=== PATIENT | male | born 1945 | race Caucasian/White ===

== ENCOUNTER 2018-06-18 11:19 | Inpatient (IN) | payer MEDICARE ==
[~2018-06-18] VITALS: Ht 188 cm; Wt 77.7 kg
--- NOTE | ~2018-06-18 | MORECARE ---
CASE MANAGEMENT DISCHARGE SUMMARY PATIENT: KARISSA CAMPA UNIT: [id number] ADM DATE: 06/18/18 AGE: 72 : 46 SEX: M ROOM/BED: D.2133 AUTHOR: SONAM,DOC PHYSICIAN: REFERRING PHYSICIAN: DEON TODD MD DATE OF SERVICE: 06/29/18 Discharge Plan Patient Name: KARISSA CAMPA Facility: [facility]:[place] : 1945 Planned Disposition: Home with Home Health Anticipated Discharge Date: 06/29/18 Discharge Date: Expected LOS: 11 Initial Reviewer: [email or web address] Initial Review Date: 06/18/2018 Generated: 06/29/18 5:37 pm Comments DCP- Discharge Planning Updated by [id number]: Steve Smallwood on 06/29/18 3:[address] Patient Name: KARISSA CAMPA Encounter No: [id number] : 1945 Primary Insurance: MEDICARE A & B Anticipated DC Date: 06-29-2018 Planned Disposition: Home with Home Health External Planned Provider: [facility] DCP follow-up note: CM RECEIVED ORDERS FOR WALKER, HOME HEALTH AND OXYGEN. PT WAS 91% AT REST ON ROOM AIR, 88% ON EXERTION ON ROOM AIR AND RECOVERED TO 93% ON 2 LITERS NASAL CANNULA. CM MET WITH PT IN ROOM, DISCUSSED ABOVE. PT HAS NO CHOICE FOR HOME HEALTH BUT WILL ACCEPT THE SERVICES. CHOICE LETTER SIGNED. PT HAS NO MEDICAL EQUIPMENT PROVIDER PREFERENCE, REPORTS ABILITY TO AFFORD APPROXIMATELY $22 COPAY FOR HOME / PORTABLE OXYGEN ARRANGEMENT. PT REPORTS HE WILL CALL I TO TAKE HIM HOME TODAY AT DISCHARGE. DENIES FURTHER NEEDS. CM CALLED [facility], , SPOKE TO SAM WHO ACCEPTED PT AND WILL ADMIT FOR HOME HEALTH TOMORROW. CM FAXED REFERRAL TO [facility] AT [phone]. CM CALLED [facility], , SPOKE TO GURVINDER WHO TOOK REFERRAL FOR HOME AND PORTABLE OXYGEN WELL WALKER. CM FAXED REFERRAL TO [facility] AT [phone]. [facility] TO ARRANGE PORTABLE OXYGEN TO HOSPITAL ROOM TODAY FOR DISCHARGE, WILL ARRANGE HOME OXYGEN AND WALKER DELIVERY TO PT'S HOME TODAY AFTER DISCHARGE. CM CALLED AND NOTIFIED HIS SISTER, TARIK BROOKS, , OF DISCHARGE. PT NOTIFIED AND IN AGREEMENT WITH PLAN, DENIES FURTHER NEEDS. Steve Smallwood CASE MANAGEMENT DCP- Discharge Planning Updated by [email or web address]: Steve Smallwood on 06/29/18 8:[address] Patient Name: KARISSA CAMPA Encounter No: [id number] : 1945 Primary Insurance: MEDICARE A & B Anticipated DC Date: 06-29-2018 Planned Disposition: Home DCP follow-up note: CM RECEIVED CALL FROM PT'S DAUGHTER, PIYUSH TOBIAS, ; PIYUSH WILL BE WORKING TO GET POWER OF CARPENTER REFRIGERATOR HER FATHER HAS ASKED HER MAKE MEDICAL DECISIONS FOR HIM IF HE IS UNABLE. PIYUSH LIVES OUT OF STATE AND WOULD LIKE PT TO HAVE HOME HEALTH. SHE REPORTS THAT SHE HAS TALKED TO DR. HAHTAWAY IN THE ICU WHO TOLD HER HE WOULD FOLLOW PT PRIMARY CARE AFTER DISCHARGE FROM HOSPITAL. PT'S FAMILY REQUESTS HOME HEALTH FOR PT, REPORTS DR. HATHAWAY TOLD THEM HE WOULD FOLLOW FOR PRIMARY CARE. CM TO DISCUSS WITH CHETNA CHEEMA AND ASK FOR HOME HEALTH ORDERS. PT WOULD LIKE A WALKER FOR DISCHARGE. CM TO ARRANGE WITH PHYSICIAN AGREEMENT AND SPECIFIC ORDERS. CM TO FOLLOW AND ASSIST NEEDED. Steve Smallwood CASE MANAGEMENT DCP- Discharge Planning Updated by [email or web address]: Steve Smallwood on 06/28/18 3:[address] Patient Name: KARISSA CAMPA Encounter No: [id number] : 1945 Primary Insurance: MEDICARE A & B Anticipated DC Date: 06-29-2018 Planned Disposition: Home DCP follow-up note: CM RECEIVED ORDER FOR INPATIENT REHAB PRESCREENING. CM SPOKE TO IRINA AND TARIK BALLCH AT NURSES STATION AT FAMILY REQUEST. TARIK REPORTS BEING PT'S SISTER, PT LIVES IN [place] WITH NO FAMILY SUPPORT AND HAS A TRANSIET PERSON DRIVING HIS TRUCK AROUND TOWN. THEY ARE CONCERNED ABOUT PT LIVING ALONE AND WOULD LIKE FOR PT TO HAVE AN ELECTRIC WHEELCHAIR AND LIFT CHAIR. CM INFORMED FAMILY THAT CM WILL MEET WITH PT AND DO WHATEVER IS POSSIBLE FOR PT. CM MET WITH PT IN ROOM TO DISCUSS DISCHARGE PLANNING AND NEEDS. PT PROVIDED PERMISSION TO DISCUSS HIS CARE AND TREATMENT WITH SISTER, TARIK BROOKS. PT LIVES ALONE AND HAS A FRIEND, PERI FONTANEZ, THAT ASSISTS WITH CLEANING THE HOME AND RUNNING ERRANDS. CM DISCUSSED AVAILABILITY OF REHAB SERVICES. PT DENIES NEED FOR REHAB, STATES HE IS GOING HOME AT DISCHARGE. PT HAS A CANE WITH NO MEDICAL EQUIPMENT PROVIDER PRERENCE AND THINKS A WALKER MAY HELP AT HOME IF HE DOES FEEL WEAK. PT HAS NO PRIMARY CARE DOCTOR SINCE MOVING HERE. CM PROVIDED [facility] CONNECTIONS INFORMATION, DISCUSSED HOW TO GET APPOINTMENT FOR REVIEW AND POSSIBLE PRIMARY DOCTOR CARE AT THE CLINIC. PT REPORTS UNDERSTANDING, STATES HE WILL BE TAKING A TAXI CAB HOME AT DISCHARGE.IMPORTANT MESSAGE FROM MEDICARE PROVIDED AND EXPLAINED. PT WOULD LIKE A WALKER FOR DISCHARGE. CM TO ARRANGE WITH PHYSICIAN AGREEMENT AND SPECIFIC ORDERS. CM TO FOLLOW AND ASSIST NEEDED. Steve Smallwood, CASE MANAGEMENT DCP- Discharge Planning Updated by [email or web address]: Grace Lau on 06/18/18 4:[address] CM contacted Lana Morelos RN, with [facility] to notify of order. Lana states Rehab will follow the patient's progress with PT/OT for evaluation. Grace Lau RN, CM DCPIA - Discharge Planning Initial Assessment Updated by [email or web address]: Steve Smallwood on 06/28/18 4:49 pm * Is the patient Alert and Oriented? Yes * How many steps to enter\exit or inside your home? NONE * PCP NONE PROVIDED [facility]CTIONS [facility] INFORMATION * Pharmacy [facility]. * Preadmission Environment Home Alone * ADLs Independent * Equipment Cane * Other Equipment NO MEDICAL EQUIPMENT PROVIDER PREFERENCE * List name and contact numbers for known caregivers / representatives who currently or will assist patient after discharge: PERI FREEMAN, FRIEND, TARIK BROOKS, SISTER, NEIL ROSLAES IN LAW, * Verbal permission to speak to the caregivers and representatives has been obtained from the patient. Yes * Community resources currently utilized None * Please name any agencies selected above. NONE * Additional services required to return to the preadmission environment? No * Can the patient safely return to the preadmission environment? Yes * Has this patient been hospitalized within the prior 30 days at any hospital? No Coverage Notice Reviewer: [id number] - Steve Smallwood Notice Issued Date-Time: 06/28/2018 12:00 Notice Type: IM Discharge Notice Notice Delivered To: Patient Relationship to Patient: Nursery Hand Name: Delivery Method: HAND - Hand Delivered Zaria Days: Prior Verbal Notification: Recipient Understood Notice: Yes Recipient Signature: Yes Med Rec Note Co-signed by Attending: Coverage Notice Comment: Last DP export: 06/29/18 2:54 Patient Name: KARISSA CAMPA Page [id number] at 1637 All edits/amendments must be made on the electronic document DICTATION DATE: 06/29/181636 SHANK BREAKER: DEVORAH 06/29/181636 RPT#: [id number] DC DATE: STATUS: ADM IN [facility] [address] [place] [address] END OF REPORT
--- NOTE | ~2018-06-18 | MORECARE ---
CASE MANAGEMENT DISCHARGE SUMMARY PATIENT: KARISSA CAMPA UNIT: [id number] ADM DATE: 06/18/18 AGE: 72 : 47 SEX: M ROOM/BED: D.2133 AUTHOR: SONAM,DOC PHYSICIAN: REFERRING PHYSICIAN: DEON TODD MD DATE OF SERVICE: 06/29/18 Discharge Plan Patient Name: KARISSA CAMPA Facility: [facility]:[place] : 1945 Planned Disposition: Home with Home Health Anticipated Discharge Date: 06/29/18 Discharge Date: Expected LOS: 11 Initial Reviewer: [email or web address] Initial Review Date: 06/18/2018 Generated: 06/29/18 4:46 pm Comments DCP- Discharge Planning Updated by [email or web address]: Steve Smallwood on 06/29/18 8:[address] Patient Name: KARISSA CAMPA Encounter No: [id number] : 1945 Primary Insurance: MEDICARE A & B Anticipated DC Date: 06-29-2018 Planned Disposition: Home DCP follow-up note: CM RECEIVED CALL FROM PT'S DAUGHTER, PIYUSH TOBIAS, ; PIYUSH WILL BE WORKING TO GET POWER OF SUPERINTENDENT OF GENERATION HER FATHER HAS ASKED HER MAKE MEDICAL DECISIONS FOR HIM IF HE IS UNABLE. PIYUSH LIVES OUT OF STATE AND WOULD LIKE PT TO HAVE HOME HEALTH. SHE REPORTS THAT SHE HAS TALKED TO DR. HATHAWAY IN THE ICU WHO TOLD HER HE WOULD FOLLOW PT PRIMARY CARE AFTER DISCHARGE FROM HOSPITAL. PT'S FAMILY REQUESTS HOME HEALTH FOR PT, REPORTS DR. HATHAWAY TOLD THEM HE WOULD FOLLOW FOR PRIMARY CARE. CM TO DISCUSS WITH CHETNA CHEEMA AND ASK FOR HOME HEALTH ORDERS. PT WOULD LIKE A WALKER FOR DISCHARGE. CM TO ARRANGE WITH PHYSICIAN AGREEMENT AND SPECIFIC ORDERS. CM TO FOLLOW AND ASSIST NEEDED. JASMEET Roberson DCP- Discharge Planning Updated by [email or web address]: Steve Smallwood on 06/28/18 3:[address] Patient Name: KARISSA CAMPA Encounter No: [id number] : 1945 Primary Insurance: MEDICARE A & B Anticipated DC Date: 06-29-2018 Planned Disposition: Home DCP follow-up note: CM RECEIVED ORDER FOR INPATIENT REHAB PRESCREENING. CM SPOKE TO IRINA AND TARIK BROOKS AT NURSES STATION AT FAMILY REQUEST. TARIK REPORTS BEING PT'S SISTER, PT LIVES IN [place] WITH NO FAMILY SUPPORT AND HAS A TRANSIET PERSON DRIVING HIS TRUCK AROUND [facility]. THEY ARE CONCERNED ABOUT PT LIVING ALONE AND WOULD LIKE FOR PT TO HAVE AN ELECTRIC WHEELCHAIR AND LIFT CHAIR. CM INFORMED FAMILY THAT CM WILL MEET WITH PT AND DO WHATEVER IS POSSIBLE FOR PT. CM MET WITH PT IN ROOM TO DISCUSS DISCHARGE PLANNING AND NEEDS. PT PROVIDED PERMISSION TO DISCUSS HIS CARE AND TREATMENT WITH SISTER, TARIK BROOKS. PT LIVES ALONE AND HAS A FRIEND, PERI FONTANEZ, THAT ASSISTS WITH CLEANING THE HOME AND RUNNING ERRANDS. CM DISCUSSED AVAILABILITY OF REHAB SERVICES. PT DENIES NEED FOR REHAB, STATES HE IS GOING HOME AT DISCHARGE. PT HAS A CANE WITH NO MEDICAL EQUIPMENT PROVIDER PRERENCE AND THINKS A WALKER MAY HELP AT HOME IF HE DOES FEEL WEAK. PT HAS NO PRIMARY CARE DOCTOR SINCE MOVING HERE. CM [facility]FORMATION, DISCUSSED HOW TO GET APPOINTMENT FOR REVIEW AND POSSIBLE PRIMARY DOCTOR CARE AT THE CLINIC. PT REPORTS UNDERSTANDING, STATES HE WILL BE TAKING A TAXI CAB HOME AT DISCHARGE.IMPORTANT MESSAGE FROM MEDICARE PROVIDED AND EXPLAINED. PT WOULD LIKE A WALKER FOR DISCHARGE. CM TO ARRANGE WITH PHYSICIAN AGREEMENT AND SPECIFIC ORDERS. CM TO FOLLOW AND ASSIST NEEDED. Steve Smallwood, CASE MANAGEMENT DCP- Discharge Planning Updated by [id number]: Grace Lau on 06/18/18 4:[address] CM contacted Lana Morelos RN, with [facility] to notify of order. Lana states Rehab will follow the patient's progress with PT/OT for evaluation. Grace Lau RN, CM DCPIA - Discharge Planning Initial Assessment Updated by [email or web address]: Steve Smallwood on 06/28/18 4:49 pm * Is the patient Alert and Oriented? Yes * How many steps to enter\exit or inside your home? NONE * PCP NONE PROVIDED [facility] CONNECTIONS [facility]IN[facility] INFORMATION * Pharmacy [facility]. * Preadmission Environment Home Alone * ADLs Independent * Equipment Cane * Other Equipment NO MEDICAL EQUIPMENT PROVIDER PREFERENCE * List name and contact numbers for known caregivers / representatives who currently or will assist patient after discharge: PERI FREEMAN, FRIEND, TARIK BROOKS, SISTER, NEIL ROSALES IN LAW, * Verbal permission to speak to the caregivers and representatives has been obtained from the patient. Yes * Community resources currently utilized None * Please name any agencies selected above. NONE * Additional services required to return to the preadmission environment? No * Can the patient safely return to the preadmission environment? Yes * Has this patient been hospitalized within the prior 30 days at any hospital? No External Providers [facility] Next Contact Date: 06/29/2018 Service Request Date: Service Type: Resolution: Reviewer: Comments: Coverage Notice Reviewer: [id number] - Steve Smallwood Notice Issued Date-Time: 06/28/2018 12:00 Notice Type: IM Discharge Notice Notice Delivered To: Patient Relationship to Patient: Registered Occupational Therapist Name: Delivery Method: HAND - Hand Delivered Zaria Days: Prior Verbal Notification: Recipient Understood Notice: Yes Recipient Signature: Yes Med Rec Note Co-signed by Attending: Coverage Notice Comment: Last DP export: 06/29/18 8:05 Patient Name: KARISSA CAMPA Page [id number] at 1546 All edits/amendments must be made on the electronic document DICTATION DATE: 06/29/181545 SURGERY SCHEDULING COORDINATOR: DEVORAH 06/29/181545 RPT#: [id number] DC DATE: STATUS: ADM IN [facility] [address] [place] [address] END OF REPORT
--- NOTE | ~2018-06-18 | CN ---
PATIENT NAME:KARISSA RODRÍGUEZ MEDICAL RECORD: [id number] : 47 LOCATION:. D.2133 ADMIT DATE: 06/18/18 ACCOUNT: [id number] CONSULTING PHYSICIAN: RONALD CORREA MD REFERRING PHYSICIAN: RODERICK YA MD DATE OF CONSULTATION: 06/18/2018 CONSULT REQUESTING PHYSICIAN: Roderick Ya MD REASON FOR CONSULTATION: Pulmonary edema, acute shortness of breath. HISTORY OF PRESENT ILLNESS: Mr. Rodríguez is a 72-year-old gentleman who was brought into the ER with worsening shortness of breath, swelling of the lower extremities. There is no chest pain. He has orthopnea and PND. Denies any fever and chills. Denies any recent upper respiratory tract infection. REVIEW OF SYSTEMS: As in history of present illness. PAST MEDICAL HISTORY: 1. COPD. 2. Congestive heart failure. 3. Tobacco dependence syndrome. ALLERGIES: No known drug allergy. MEDICATIONS: Arjuna Solutionstech is reviewed. PERSONAL AND SOCIAL HISTORY: The patient is still smoking a pack to 1-1/2 pack per day. He is a nondrinker. FAMILY HISTORY: Noncontributory. PHYSICAL EXAMINATION: GENERAL: Now, the patient is lying comfortably, but he is a severe dyspneic. VITAL SIGNS: The blood pressure 122/82, pulse is 119, respiration is 20, temperature is 98.1, and SPO2 is 92% on 2 liters nasal cannula. HEENT: Conjunctivae are pink. Sclerae are not icteric. NECK: Supple, no JVD. CHEST: There are bilateral crackles, wheeze on forceful expiration. HEART: Rhythm regular, normal sound, no murmur. ABDOMEN: Soft, bowel sounds present. No hepatosplenomegaly. RECTAL: Deferred. EXTREMITIES: No cyanosis, no clubbing. There are 2+ pedal edema. SKIN: Warm, normal turgor. CENTRAL NERVOUS SYSTEM: The patient is awake and alert. There are no obvious cranial nerve abnormality. The gait was not tested. IMAGING: Chest radiograph, there is increased interstitial marking bilaterally, the right more than the left. LABORATORY DATA: CBC: WBC is 7.7, hemoglobin 15, hematocrit 44, and the platelet count is 156. Chemistry: Sodium is 130, potassium is 4.9. ABG: The pH is 7.30, pCO2 is 58.7, the pO2 is 80, bicarbonate is 29.1. IMPRESSION: CONSULT REPORT [id number] KARISSA RODRÍGUEZ 1. Gpjjj-ud-nqafdrr hypoxic hypercapnic respiratory failure. 2. Respiratory acidosis. 3. Acute exacerbation of COPD. 4. Pulmonary edema. 5. CHF with chronic systolic dysfunction. 6. Tobacco dependence syndrome. 7. Dyspnea. RECOMMENDATION: 1. We will continue supplemental oxygen. 2. Start on albuterol/ipratropium nebulizer. 3. Brovana, budesonide nebulizer. 4. Continue IV Lasix. 5. Follow up on the cardiac echo report. 6. The patient was counseled regarding smoking cessation. 7. Followup labs and chest radiograph. Dr. Ya, thank you for involving me in the care of Mr. Rodríguez. TRANSINT:[id number] Voice Confirmation ID: [id number] DOCUMENT ID: [id number] RONALD CORREA MD at 1234 CC: [id number] DICTATION DATE: 06/18/18 1507 PHYSICIANS ASSISTANT: 06/18/18 1522 ADM IN [facility] [address] [place] [address]
--- NOTE | ~2018-06-18 | CN ---
PATIENT NAME:KARISSA CAMPA MEDICAL RECORD: [id number] : [birth year] LOCATION:YANIRAD.2308 ADMIT DATE: 06/18/18 ACCOUNT: [id number] CONSULTING PHYSICIAN: EBONI JOHN MD REFERRING PHYSICIAN: DEON TODD MD DATE OF CONSULTATION: 06/18/2018 DIAGNOSES: 1. Shortness of breath, dyspnea on exertion. 2. Smoking. 3. Chronic obstructive pulmonary disease. 4. Hypertension. 5. Aortic stenosis. 6. Cardiomyopathy. 7. Congestive heart failure, chronic systolic dysfunction. HISTORY OF PRESENT ILLNESS: Mr. Campa has no real medical problems in the past. No real medical history and no cardiac history, presents with shortness of breath and dyspnea on exertion. He is a long-term smoker and does have COPD and is now being treated for that. He had an echocardiogram, reveals an ejection fraction in the 20% range with severe aortic stenosis. His chest x-ray is compatible with pulmonary edema. PHYSICAL EXAMINATION: GENERAL APPEARANCE: Well-nourished, well-developed, appears stated age. Level of distress, comfortable. PSYCHIATRIC: Mental status, alert, normal affect. Orientation, oriented to time, place and person. EYES: Lids and conjunctiva, noninjected. No discharge, no pallor. ENT: Lips, teeth, gums, normal dentition. Oropharynx, no cyanosis, no pallor. NECK: Carotid arteries, bilateral normal upstroke, no bruits, no thrills. JUGULAR VEINS: No jugular venous pressure or distention. CERVICAL LYMPH NODES: Nontender, nonenlarged. THYROID: Not enlarged. Nontender. No nodules. LUNGS: Respiratory effort, unlabored. CHEST: Normal curvature. No thoracic deformity. No chest wall tenderness. Percussion, resonant. Auscultation, clear. No wheezes, no rales, no rhonchi. CARDIOVASCULAR: Precordial exam, nondisplaced. No heaves or pericardial thrills. Rate and rhythm, regular. Heart sounds, normal S1, normal S2. No S3, no gallop, no rub. Systolic murmur, not heard. Diastolic murmur, not heard. EXTREMITIES: No cyanosis, no edema. Peripheral pulses, full and equal in all extremities, except as noted. No bruits appreciated. ABDOMEN: Soft, nondistended. Normal aorta. No bruit. Nontender. No masses. Liver, nontender, no hepatomegaly. Spleen, nontender, no splenomegaly. MUSCULOSKELETAL: No joint tenderness. No joint swelling. No erythema. NEUROLOGICAL: Normal gait, normal strength, normal tone. SKIN: Warm and dry. OVERALL IMPRESSION: Shortness of breath, dyspnea on exertion. This is a combination of chronic obstructive pulmonary disease and congestive heart failure as well as the aortic stenosis. I have talked with him at length about how to approach this. He wanted to take a conservative nonsurgical approach to this. I agree with him with this ejection fraction in his lungs. Operative mortality would be huge. He could possibly go to somewhere for a transcatheter aortic valve replacement procedure in the future. At this time, though, will CONSULT REPORT [id number] KARISSA CAMPA treat medically. We will treat with Coreg and lisinopril as his blood pressure tolerates it, and IV diuresis as well as pulmonary directed therapy for the chronic obstructive pulmonary disease. TRANSINT:[id number] Voice Confirmation ID: [id number] DOCUMENT ID: [id number] EBONI JOHN MD at 1059 CC: [id number] DICTATION DATE: 06/18/18 1651 TILE CLASSIFIER: 06/18/18 1706 ADM IN [facility] [address] [place] [id number]
--- NOTE | ~2018-06-18 | MORECARE ---
CASE MANAGEMENT DISCHARGE SUMMARY PATIENT: KARISSA CAMPA UNIT: [id number] ADM DATE: 06/18/18 AGE: 72 : 47 SEX: M ROOM/BED: D.2133 AUTHOR: SONAM,DOC PHYSICIAN: REFERRING PHYSICIAN: DEON TODD MD DATE OF SERVICE: 06/28/18 Discharge Plan Patient Name: KARISSA CAMPA Facility: [facility]:[place] : 1945 Planned Disposition: Home Anticipated Discharge Date: 06/29/18 Discharge Date: Expected LOS: 11 Initial Reviewer: [id number] Initial Review Date: 06/18/2018 Generated: 06/28/18 5:54 pm Comments DCP- Discharge Planning Updated by [email or web address]: Grace Lua on 06/18/18 4:[address] CM contacted Lana Morelos RN, with [facility] to notify of order. Lana states Rehab will follow the patient's progress with PT/OT for evaluation. Grace Lau RN CM DCPIA - Discharge Planning Initial Assessment Updated by [email or web address]: Steve Smallwood on 06/28/18 4:49 pm * Is the patient Alert and Oriented? Yes * How many steps to enter\exit or inside your home? NONE * PCP NONE PROVIDED [facility]IN[facility] INFORMATION * Pharmacy [facility]. * Preadmission Environment Home Alone * ADLs Independent * Equipment Cane * Other Equipment NO MEDICAL EQUIPMENT PROVIDER PREFERENCE * List name and contact numbers for known caregivers / representatives who currently or will assist patient after discharge: PERI PETE, FRIEND, TARIK BROOKS, SISTER, IRINA BROOKS, BRO IN LAW, * Verbal permission to speak to the caregivers and representatives has been obtained from the patient. Yes * Community resources currently utilized None * Please name any agencies selected above. NONE * Additional services required to return to the preadmission environment? No * Can the patient safely return to the preadmission environment? Yes * Has this patient been hospitalized within the prior 30 days at any hospital? No Coverage Notice Reviewer: [email or web address] Eyal Smallwood Notice Issued Date-Time: 06/28/2018 12:00 Notice Type: IM Discharge Notice Notice Delivered To: Patient Relationship to Patient: Precision Machinist Name: Delivery Method: HAND - Hand Delivered Zaria Days: Prior Verbal Notification: Recipient Understood Notice: Yes Recipient Signature: Yes Med Rec Note Co-signed by Attending: Coverage Notice Comment: Last DP export: 06/28/18 3:47 Patient Name: KARISSA CAMPA Page 65453 at 1654 All edits/amendments must be made on the electronic document DICTATION DATE: 06/28/181652 BELT AND LINK SHOP SUPERVISOR: DEVORAH 06/28/181652 RPT#: [id number] DC DATE: STATUS: ADM IN [facility] [address] [place] [address] END OF REPORT
--- NOTE | ~2018-06-18 | MORECARE ---
CASE MANAGEMENT DISCHARGE SUMMARY PATIENT: KARISSA CAMPA UNIT: [id number] ADM DATE: 06/18/18 AGE: 72 : [birth year] SEX: M ROOM/BED: D.2104 AUTHOR: SAMSON MASTERS PHYSICIAN: REFERRING PHYSICIAN: DEON TDOD MD DATE OF SERVICE: 06/18/18 Discharge Plan Patient Name: KARISSA CAMPA [facility] : 1945 Planned Disposition: Anticipated Discharge Date: Discharge Date: Expected LOS: Initial Reviewer: [email or web address] Initial Review Date: 06/18/2018 Generated: 06/18/18 5:32 pm Comments DCP- Discharge Planning Updated by [email or web address]: Grace Lau on 06/18/18 3:[address] CM contacted Lana Morelos RN, with [facility] to notify of order. Lana states Rehab will follow the patient's progress with PT/OT for evaluation. Grace Lau RN CM Last DP export: 06/18/18 3:24 p Patient Name: KARISSA CAMPA Page 00152 at 1632 All edits/amendments must be made on the electronic document DICTATION DATE: 06/18/18 163 MANAGER DEVELOPMENT: DEVORAH 06/18/18 163 RPT#: [id number] DC DATE: STATUS: ADM IN [facility] [address] [place] [address] END OF REPORT
--- NOTE | ~2018-06-18 | MORECARE ---
CASE MANAGEMENT DISCHARGE SUMMARY PATIENT: KARISSA CAMPA UNIT: [id number] ADM DATE: 06/18/18 AGE: 72 : 47 SEX: M ROOM/BED: D.2104 AUTHOR: SAMSON MASTERS PHYSICIAN: REFERRING PHYSICIAN: DEON TODD MD DATE OF SERVICE: 06/18/18 Discharge Plan Patient Name: KARISSA CAMPA [facility] [facility] 1945 Planned Disposition: Anticipated Discharge Date: Discharge Date: Expected LOS: Initial Reviewer: [email or web address] Initial Review Date: 06/18/2018 Generated: 06/18/18 5:24 pm Patient Name: KARISSA CAMPA Page 41819 at 1624 All edits/amendments must be made on the electronic document DICTATION DATE: 06/18/181623 TELEGRAPH OFFICE TELEPHONE CLERK: DEVORAH 06/18/18 1624 RPT#: [id number] [place] DATE: STATUS: ADM IN [facility] [address] [place] [address] END OF REPORT
--- NOTE | ~2018-06-18 | MORECARE ---
CASE MANAGEMENT DISCHARGE SUMMARY PATIENT: KARISSA CAMPA UNIT: [id number] ADM DATE: 06/18/18 AGE: 72 : [birth year] SEX: M ROOM/BED: D.2133 AUTHOR: SONAM,DOC PHYSICIAN: REFERRING PHYSICIAN: DEON TODD MD DATE OF SERVICE: 06/29/18 Discharge Plan Patient Name: KARISSA CAMPA Facility: [facility]:[place] : 1945 Planned Disposition: Home Anticipated Discharge Date: 06/29/18 Discharge Date: Expected LOS: 11 Initial Reviewer: [id number] Initial Review Date: 06/18/2018 Generated: 06/29/18 10:05 am Comments DCP- Discharge Planning Updated by [email or web address]: Steve Smallwood on 06/29/18 8:[address] Patient Name: KARISSA CAMPA Encounter No: [id number] : 1945 Primary Insurance: MEDICARE A & B Anticipated DC Date: 06-29-2018 Planned Disposition: Home DCP follow-up note: CM RECEIVED CALL FROM PT'S DAUGHTER, PIYUSH TOBIAS, ; PYIUSH WILL BE WORKING TO GET POWER OF CORPORATE SALES TRAINER HER FATHER HAS ASKED HER MAKE MEDICAL DECISIONS FOR HIM IF HE IS UNABLE. PIYUSH LIVES OUT OF STATE AND WOULD LIKE PT TO HAVE HOME HEALTH. SHE REPORTS THAT SHE HAS TALKED TO DR. HATHAWAY IN THE ICU WHO TOLD HER HE WOULD FOLLOW PT PRIMARY CARE AFTER DISCHARGE FROM HOSPITAL. PT'S FAMILY REQUESTS HOME HEALTH FOR PT, REPORTS DR. HATHAWAY TOLD THEM HE WOULD FOLLOW FOR PRIMARY CARE. CM TO DISCUSS WITH CHETNA CHEEMA AND ASK FOR HOME HEALTH ORDERS. PT WOULD LIKE A WALKER FOR DISCHARGE. CM TO ARRANGE WITH PHYSICIAN AGREEMENT AND SPECIFIC ORDERS. CM TO FOLLOW AND ASSIST NEEDED. Steve Smallwood, CASE HECTOR DCP- Discharge Planning Updated by [id number]: Steve Smallwood on 06/28/18 3:[address] Patient Name: KARISSA CAMPA Encounter No: [id number] : 1945 Primary Insurance: MEDICARE A & B Anticipated DC Date: 06-29-2018 Planned Disposition: Home DCP follow-up note: CM RECEIVED ORDER FOR INPATIENT REHAB PRESCREENING. CM SPOKE TO IRINA AND TARIK BROOKS AT NURSES STATION AT FAMILY REQUEST. TARIK REPORTS BEING PT'S SISTER, PT LIVES IN [place] WITH NO FAMILY SUPPORT AND HAS A TRANSIET PERSON DRIVING HIS TRUCK AROUND [facility]. THEY ARE CONCERNED ABOUT PT LIVING ALONE AND WOULD LIKE FOR PT TO HAVE AN ELECTRIC WHEELCHAIR AND LIFT CHAIR. CM INFORMED FAMILY THAT CM WILL MEET WITH PT AND DO WHATEVER IS POSSIBLE FOR PT. CM MET WITH PT IN ROOM TO DISCUSS DISCHARGE PLANNING AND NEEDS. PT PROVIDED PERMISSION TO DISCUSS HIS CARE AND TREATMENT WITH SISTER, TARIK BROOKS. PT LIVES ALONE AND HAS A FRIEND, PERI FONTANEZ, THAT ASSISTS WITH CLEANING THE HOME AND RUNNING ERRANDS. CM DISCUSSED AVAILABILITY OF REHAB SERVICES. PT DENIES NEED FOR REHAB, STATES HE IS GOING HOME AT DISCHARGE. PT HAS A CANE WITH NO MEDICAL EQUIPMENT PROVIDER PRERENCE AND THINKS A WALKER MAY HELP AT HOME IF HE DOES FEEL WEAK. PT HAS NO PRIMARY CARE DOCTOR SINCE MOVING HERE. CM [facility], DISCUSSED HOW TO GET APPOINTMENT FOR REVIEW AND POSSIBLE PRIMARY DOCTOR CARE AT THE CLINIC. PT REPORTS UNDERSTANDING, STATES HE WILL BE TAKING A TAXI CAB HOME AT DISCHARGE.IMPORTANT MESSAGE FROM MEDICARE PROVIDED AND EXPLAINED. PT WOULD LIKE A WALKER FOR DISCHARGE. CM TO ARRANGE WITH PHYSICIAN AGREEMENT AND SPECIFIC ORDERS. CM TO FOLLOW AND ASSIST NEEDED. Steve Smallwood, CASE MANAGEMENT DCP- Discharge Planning Updated by [email or web address]: Grace Lau on 06/18/18 4:[address] CM contacted Lana Morelos RN, with [facility] to notify of order. Lana states Rehab will follow the patient's progress with PT/OT for evaluation. Grace Lau RN, CM DCPIA - Discharge Planning Initial Assessment Updated by [id number]: Steve Smallwood on 06/28/18 4:49 pm * Is the patient Alert and Oriented? Yes * How many steps to enter\exit or inside your home? NONE * PCP NONE PROVIDED [facility] INFORMATION * Pharmacy [facility]. * Preadmission Environment Home Alone * ADLs Independent * Equipment Cane * Other Equipment NO MEDICAL EQUIPMENT PROVIDER PREFERENCE * List name and contact numbers for known caregivers / representatives who currently or will assist patient after discharge: PERI FREEMAN, FRIEND, TARIK BROOKS, SISTER, NEIL ROSALES IN LAW, * Verbal permission to speak to the caregivers and representatives has been obtained from the patient. Yes * Community resources currently utilized None * Please name any agencies selected above. NONE * Additional services required to return to the preadmission environment? No * Can the patient safely return to the preadmission environment? Yes * Has this patient been hospitalized within the prior 30 days at any hospital? No Coverage Notice Reviewer: [id number] Eyal Smallwood Notice Issued Date-Time: 06/28/2018 12:00 Notice Type: IM Discharge Notice Notice Delivered To: Patient Relationship to Patient: Stave Inspector Name: Delivery Method: HAND - Hand Delivered Zaria Days: Prior Verbal Notification: Recipient Understood Notice: Yes Recipient Signature: Yes Med Rec Note Co-signed by Attending: Coverage Notice Comment: Last DP export: 06/28/18 4:02 Patient Name: KARISSA CAMPA Page 53818 at 0905 All edits/amendments must be made on the electronic document DICTATION DATE: 06/29/18904 DOPE WORKER: DEVORAH 06/29/18904 RPT#: [id number] DC DATE: STATUS: ADM IN [facility] [address] [place] [address] END OF REPORT
--- NOTE | ~2018-06-18 | EC ---
PATIENT:KARISSA CAMPA DATE OF SERVICE: 06/18/18 SEX: M MEDICAL RECORD: [id number] DATE OF : [birth year] LOCATION:[facility] AGE OF PATIENT: 72 ADMISSION DATE: 06/18/18 REFERRING PHYSICIAN: INTERPRETING PHYSICIAN: EBONI CROW MD ECHOCARDIOGRAM REPORT ECHO CHARGES 4 ECHO COMPLETE Date: 06/18/18 CLINICAL DIAGNOSIS: ECHOCARDIOGRAPHIC MEASUREMENTS (adult normal given) AC root (d.<3.7cm) 3.9 cm LV Septum d (<1.2 cm> 1.4 cm Valve Excursion 0.7 cm LV Septum (systole) 1.6 cm Left Atria (s.<4.0cm> 3.9 cm LVPW d(<1.2cm) 1.2 cm RV (d.<2.3cm) 2.4 cm LVPW (sytole) 1.6 cm LV diastole(<5.6CM) 6.7 cm MV E-F(>70mm/sec) cm LV systole 6.0 cm LVOT Diameter 1.9 cm MV exc.(>10mm) cm Est.ejection fraction (50-75%) % DOPPLER: LVIT cm/sec A cm/sec E 193 cm/sec LA cm/sec RVSP 44.0 mmHg LVOT 97.0 cm/sec AOP1/2T m/s Asc. Ao 464 cm/sec RVOT 68.0 cm/sec RA cm/sec PA 106 cm/sec AV Gradient Peak 86.1 mmHg AV Mean 54.0 mmHg AV Area 0.6 cm MV Gradient Peak 19.1 mmHg MV Mean 6.0 mmHg MV Area cm COMMENTS: Leaf Conditioner Helper: 1 DOMINGA ORDOÑEZDSOE Cath Lab Manager: 1 Dr. Crow TAPE# PACS Pericardial Effusion N DATE OF SERVICE: 06/18/2018 FINDINGS: 1. Left ventricular chamber size is mildly dilated. Left ventricular systolic function is markedly reduced. Overall ejection fraction is 15% to 20%. 2. Left atrium is within normal limits at 3.9 cm. Right atrium and right ventricle chamber sizes are mildly dilated. 3. Valvular structures: Aortic valve demonstrates severe calcific aortic stenosis. Valve area calculates at 0.6 cm-squared. There is a gradient of 86 mm across the valve. The remaining valvular structures have normal structure ECHOCARDIOGRAM REPORT [id number] GRAVES,KARISSA WEN and motion. 4. Doppler interrogation else garcia reveals moderate mitral regurgitation and mild tricuspid regurgitation. No other valvular insufficiency or stenosis. Pulmonary systolic pressure is estimated at 44 mmHg. 5. No evidence of pericardial effusion or left ventricular thrombus. TRANSINT:[id number] Voice Confirmation ID: [id number] DOCUMENT ID: [id number] EBONI CROW MD at 1059 CC: [id number] DICTATION DATE: 06/18/181640 POULTRY KILLER: 06/18/18 1655 ADM IN [facility] [address] [place] [id number]
--- NOTE | ~2018-06-18 | MORECARE ---
CASE MANAGEMENT DISCHARGE SUMMARY PATIENT: KARISSA CAMPA UNIT: [id number] ADM DATE: 06/18/18 AGE: 72 : 47 SEX: M ROOM/BED: D.2133 AUTHOR: SAMSON MASTERS PHYSICIAN: REFERRING PHYSICIAN: DEON TODD MD DATE OF SERVICE: 06/28/18 Discharge Plan Patient Name: KARISSA CAMPA [facility] [facility] 1945 Planned Disposition: Home Anticipated Discharge Date: 06/29/18 Discharge Date: Expected LOS: 11 Initial Reviewer: [email or web address] Initial Review Date: 06/18/2018 Generated: 06/28/18 5:46 pm Comments DCP- Discharge Planning Updated by [id number]: Grace Lau on 06/18/18 4:[address] CM contacted Lana Morelos RN, with [facility] to notify of order. Lana states Rehab will follow the patient's progress with PT/OT for evaluation. Grace Lau RN CM Coverage Notice Reviewer: [id number] Eyal Smallwood Notice Issued Date-Time: 06/28/2018 12:00 Notice Type: IM Discharge Notice Notice Delivered To: Patient Relationship to Patient: Software Licensing Specialist Name: Delivery Method: HAND - Hand Delivered Zaria Days: Prior Verbal Notification: Recipient Understood Notice: Yes Recipient Signature: Yes Med Rec Note Co-signed by Attending: Coverage Notice Comment: Last DP export: 06/18/18 4:32 p Patient Name: KARISSA CAMPA Page [id number] at 1647 All edits/amendments must be made on the electronic document DICTATION DATE: 06/28/181645 ASIC DESIGN ENGINEER: DEVORAH 06/28/181645 RPT#: [id number] DC DATE: STATUS: ADM IN [facility] [address] [place] [address] END OF REPORT
--- NOTE | ~2018-06-18 | MORECARE ---
CASE MANAGEMENT DISCHARGE SUMMARY PATIENT: KARISSA CAMPA UNIT: [id number] ADM DATE: 06/18/18 AGE: 72 : 47 SEX: M ROOM/BED: D.2133 AUTHOR: SONAM,DOC PHYSICIAN: REFERRING PHYSICIAN: DEON TODD MD DATE OF SERVICE: 06/29/18 Discharge Plan Patient Name: KARISSA CAMPA Facility: [facility]:[place] : 1945 Planned Disposition: Home with Home Health Anticipated Discharge Date: 06/29/18 Discharge Date: Expected LOS: 11 Initial Reviewer: [id number] Initial Review Date: 06/18/2018 Generated: 06/29/18 4:54 pm Comments DCP- Discharge Planning Updated by [id number]: Steve Smallwood on 06/29/18 8:[address] Patient Name: KARISSA CAMPA Encounter No: [id number] : 1945 Primary Insurance: MEDICARE A & B Anticipated DC Date: 06-29-2018 Planned Disposition: Home DCP follow-up note: CM RECEIVED CALL FROM PT'S DAUGHTER, PIYUSH TOBIAS, ; PIYUSH WILL BE WORKING TO GET POWER OF PLUG MAKING OPERATOR HER FATHER HAS ASKED HER MAKE MEDICAL DECISIONS FOR HIM IF HE IS UNABLE. PIYUSH LIVES OUT OF STATE AND WOULD LIKE PT TO HAVE HOME HEALTH. SHE REPORTS THAT SHE HAS TALKED TO DR. HATHAWAY IN THE ICU WHO TOLD HER HE WOULD FOLLOW PT PRIMARY CARE AFTER DISCHARGE FROM HOSPITAL. PT'S FAMILY REQUESTS HOME HEALTH FOR PT, REPORTS DR. HATHAWAY TOLD THEM HE WOULD FOLLOW FOR PRIMARY CARE. CM TO DISCUSS WITH CHETNA CHEEMA AND ASK FOR HOME HEALTH ORDERS. PT WOULD LIKE A WALKER FOR DISCHARGE. CM TO ARRANGE WITH PHYSICIAN AGREEMENT AND SPECIFIC ORDERS. CM TO FOLLOW AND ASSIST NEEDED. JASMEET Roberson DCP- Discharge Planning Updated by [id number]: Steve Smallwood on 06/28/18 3:[address] Patient Name: KARISSA CAMPA Encounter No: [id number] : 1945 Primary Insurance: MEDICARE A & B Anticipated DC Date: 06-29-2018 Planned Disposition: Home DCP follow-up note: CM RECEIVED ORDER FOR INPATIENT REHAB PRESCREENING. CM SPOKE TO IRINA AND TARIK BROOKS AT NURSES STATION AT FAMILY REQUEST. TARIK REPORTS BEING PT'S SISTER, PT LIVES IN [place] WITH NO FAMILY SUPPORT AND HAS A TRANSIET PERSON DRIVING HIS TRUCK AROUND [facility]. THEY ARE CONCERNED ABOUT PT LIVING ALONE AND WOULD LIKE FOR PT TO HAVE AN ELECTRIC WHEELCHAIR AND LIFT CHAIR. CM INFORMED FAMILY THAT CM WILL MEET WITH PT AND DO WHATEVER IS POSSIBLE FOR PT. CM MET WITH PT IN ROOM TO DISCUSS DISCHARGE PLANNING AND NEEDS. PT PROVIDED PERMISSION TO DISCUSS HIS CARE AND TREATMENT WITH SISTER, TARIK BROOKS. PT LIVES ALONE AND HAS A FRIEND, PERI FONTANEZ, THAT ASSISTS WITH CLEANING THE HOME AND RUNNING ERRANDS. CM DISCUSSED AVAILABILITY OF REHAB SERVICES. PT DENIES NEED FOR REHAB, STATES HE IS GOING HOME AT DISCHARGE. PT HAS A CANE WITH NO MEDICAL EQUIPMENT PROVIDER PRERENCE AND THINKS A WALKER MAY HELP AT HOME IF HE DOES FEEL WEAK. PT HAS NO PRIMARY CARE DOCTOR SINCE MOVING HERE. CM PROVIDED [facility] INFORMATION, DISCUSSED HOW TO GET APPOINTMENT FOR REVIEW AND POSSIBLE PRIMARY DOCTOR CARE AT THE CLINIC. PT REPORTS UNDERSTANDING, STATES HE WILL BE TAKING A TAXI CAB HOME AT DISCHARGE.IMPORTANT MESSAGE FROM MEDICARE PROVIDED AND EXPLAINED. PT WOULD LIKE A WALKER FOR DISCHARGE. CM TO ARRANGE WITH PHYSICIAN AGREEMENT AND SPECIFIC ORDERS. CM TO FOLLOW AND ASSIST NEEDED. Steve Smallwood, CASE MANAGEMENT DCP- Discharge Planning Updated by [id number]: Grace Lau on 06/18/18 4:[address] CM contacted Lana Morelos RN, with [facility] to notify of order. Lana states Rehab will follow the patient's progress with PT/OT for evaluation. Grace Lau RN, CM DCPIA - Discharge Planning Initial Assessment Updated by [id number]: Steve Smallwood on 06/28/18 4:49 pm * Is the patient Alert and Oriented? Yes * How many steps to enter\exit or inside your home? NONE * PCP NONE PROVIDED to[facility] INFORMATION * Pharmacy [facility]. * Preadmission Environment Home Alone * ADLs Independent * Equipment Cane * Other Equipment NO MEDICAL EQUIPMENT PROVIDER PREFERENCE * List name and contact numbers for known caregivers / representatives who currently or will assist patient after discharge: PERI FREEMAN, FRIEND, TARIK BROOKS, SISTER, NEIL ROSALES IN LAW, * Verbal permission to speak to the caregivers and representatives has been obtained from the patient. Yes * Community resources currently utilized None * Please name any agencies selected above. NONE * Additional services required to return to the preadmission environment? No * Can the patient safely return to the preadmission environment? Yes * Has this patient been hospitalized within the prior 30 days at any hospital? No External Providers External Provider: [facility] Next Contact Date: 06/29/2018 Service Request Date: Service Type: Resolution: Reviewer: Comments: Coverage Notice Reviewer: [id number] - Steve Smallwood Notice Issued Date-Time: 06/28/2018 12:00 Notice Type: IM Discharge Notice Notice Delivered To: Patient Relationship to Patient: Manager Entry Name: Delivery Method: HAND - Hand Delivered Zaria Days: Prior Verbal Notification: Recipient Understood Notice: Yes Recipient Signature: Yes Med Rec Note Co-signed by Attending: Coverage Notice Comment: Last DP export: 06/29/18 2:46 Patient Name: KARISSA CAMPA Page 62255 at 1554 All edits/amendments must be made on the electronic document DICTATION DATE: 06/29/181553 CITRIX SYSTEMS ADMINISTRATOR: DEVORAH 06/29/181553 RPT#: [id number] DC DATE: STATUS: ADM IN [facility] [address] [place] [address] END OF REPORT
--- NOTE | ~2018-06-18 | MORECARE ---
CASE MANAGEMENT DISCHARGE SUMMARY PATIENT: KARISSA CAMPA UNIT: [id number] ADM DATE: 06/18/18 AGE: 72 : 46 SEX: M ROOM/BED: D.2133 AUTHOR: SONAM,DOC PHYSICIAN: REFERRING PHYSICIAN: DEON TODD MD DATE OF SERVICE: 06/28/18 Discharge Plan Patient Name: KARISSA CAMPA Facility: [facility]:[place] : 1945 Planned Disposition: Home Anticipated Discharge Date: 06/29/18 Discharge Date: Expected LOS: 11 Initial Reviewer: [id number] Initial Review Date: 06/18/2018 Generated: 06/28/18 6:02 pm Comments DCP- Discharge Planning Updated by [email or web address]: Steve Smallwood on 06/28/18 3:[address] Patient Name: KARISSA CAMPA Encounter No: [id number] : 1945 Primary Insurance: MEDICARE A & B Anticipated DC Date: 06-29-2018 Planned Disposition: Home DCP follow-up note: CM RECEIVED ORDER FOR INPATIENT REHAB PRESCREENING. CM SPOKE TO IRINA AND TARIK BROOKS AT NURSES STATION AT FAMILY REQUEST. TARIK REPORTS BEING PT'S SISTER, PT LIVES IN [place] WITH NO FAMILY SUPPORT AND HAS A TRANSIET PERSON DRIVING HIS TRUCK AROUND [facility]. THEY ARE CONCERNED ABOUT PT LIVING ALONE AND WOULD LIKE FOR PT TO HAVE AN ELECTRIC WHEELCHAIR AND LIFT CHAIR. CM INFORMED FAMILY THAT CM WILL MEET WITH PT AND DO WHATEVER IS POSSIBLE FOR PT. CM MET WITH PT IN ROOM TO DISCUSS DISCHARGE PLANNING AND NEEDS. PT PROVIDED PERMISSION TO DISCUSS HIS CARE AND TREATMENT WITH SISTER, TARIK BROOKS. PT LIVES ALONE AND HAS A FRIEND, PERI FONTANEZ, THAT ASSISTS WITH CLEANING THE HOME AND RUNNING ERRANDS. CM DISCUSSED AVAILABILITY OF REHAB SERVICES. PT DENIES NEED FOR REHAB, STATES HE IS GOING HOME AT DISCHARGE. PT HAS A CANE WITH NO MEDICAL EQUIPMENT PROVIDER PRERENCE AND THINKS A WALKER MAY HELP AT HOME IF HE DOES FEEL WEAK. PT HAS NO PRIMARY CARE DOCTOR SINCE MOVING HERE. CM PROVIDED [facility] INFORMATION, DISCUSSED HOW TO GET APPOINTMENT FOR REVIEW AND POSSIBLE PRIMARY DOCTOR CARE AT THE CLINIC. PT REPORTS UNDERSTANDING, STATES HE WILL BE TAKING A TAXI CAB HOME AT DISCHARGE.IMPORTANT MESSAGE FROM MEDICARE PROVIDED AND EXPLAINED. PT WOULD LIKE A WALKER FOR DISCHARGE. CM TO ARRANGE WITH PHYSICIAN AGREEMENT AND SPECIFIC ORDERS. CM TO FOLLOW AND ASSIST NEEDED. Steve Smallwood, CASE MANAGEMENT DCP- Discharge Planning Updated by [id number]: Grace Lau on 06/18/18 4:[address] CM contacted Lana Morelos RN, with [facility] to notify of order. Lana states Rehab will follow the patient's progress with PT/OT for evaluation. Grace Lau RN CM DCPIA - Discharge Planning Initial Assessment Updated by [id number]: Steve Smallwood on 06/28/18 4:49 pm * Is the patient Alert and Oriented? Yes * How many steps to enter\exit or inside your home? NONE * PCP NONE PROVIDED [facility] INFORMATION * Pharmacy [facility]. * Preadmission Environment Home Alone * ADLs Independent * Equipment Cane * Other Equipment NO MEDICAL EQUIPMENT PROVIDER PREFERENCE * List name and contact numbers for known caregivers / representatives who currently or will assist patient after discharge: PERI PETE, FRIEND, TARIK BROOKS, SISTER, IRINA BROOKS, BRO IN LAW, * Verbal permission to speak to the caregivers and representatives has been obtained from the patient. Yes * Community resources currently utilized None * Please name any agencies selected above. NONE * Additional services required to return to the preadmission environment? No * Can the patient safely return to the preadmission environment? Yes * Has this patient been hospitalized within the prior 30 days at any hospital? No Coverage Notice Reviewer: [id number] - Steve Smallwood Notice Issued Date-Time: 06/28/2018 12:00 Notice Type: IM Discharge Notice Notice Delivered To: Patient Relationship to Patient: Claims Adjuster Crop Name: Delivery Method: HAND - Hand Delivered Zaria Days: Prior Verbal Notification: Recipient Understood Notice: Yes Recipient Signature: Yes Med Rec Note Co-signed by Attending: Coverage Notice Comment: Last DP export: 06/28/18 3:54 Patient Name: KARISSA CAMPA Page 87233 at 1702 All edits/amendments must be made on the electronic document DICTATION DATE: 06/28/18 1701 GREY WASHER: DM 06/28/181 RPT#: [id number] DC DATE: STATUS: ADM IN [facility] [address] [place] [address] END OF REPORT
[2018-06-18 12:09] LABS: BASOPHILS 0.3 % (0-2); EOSINOPHILS 0 % (0-7); IMMATURE GRANULOCYTES 0.1 % (0-5); LYMPHOCYTES 6.6 % (15-50); MCH 32.8 pg (26.0-34.0); MCHC 34.1 g/dL (31.0-37.0); MCV 96.1 fL (80.0-100.0); MONOCYTES 6.6 % (2-11); NEUTROPHILS 86.4 % (40-80); PLATELET COUNT 156 10x3/uL (130-400); RBC 4.58 10x6/uL (4.20-6.10); RDW 13.3 % (11.5-14.5); WBC 7.7 10x3/uL (4.8-10.8)
[2018-06-18 12:23] LABS: ALBUMIN 3.4 g/dL (3.4-5.0); ALKALINE PHOSPHATASE 58 U/L (46-116); ALT (SGPT) 34 U/L (10-68); CALC OSMOLALITY 267 mosm/kg (275-300); CALCIUM 9.6 mg/dL (8.5-10.1); CARBON DIOXIDE 31.2 mmol/L (21.0-32.0); CHLORIDE - SERUM 94 mmol/L (98-107); CREATININE - SERUM 1.2 mg/dL (0.6-1.3); GLUCOSE 175 mg/dL (74-106); POTASSIUM - SERUM 4.9 mmol/L (3.5-5.1); PROTEIN - SERUM 7.1 g/dL (6.4-8.2); SODIUM 130 mmol/L (136-145); UREA NITROGEN 22 mg/dL (7-18); eGFR NON AFRICAN AMERICAN 63 mL/min (90-120)
[2018-06-18 12:42] LABS: CREATINE KINASE 88 UL (21-232); PRO BNP 26501 pg/mL (0-125); THYROID STIMULATING HORMONE 1.96 uIU/mL (0.36-3.74)
[2018-06-18 12:46] LABS: TROPONIN-I 0.234 ng/mL (0.000-0.060)
[2018-06-18 13:47] LABS: APPEARANCE CLEAR (CLEAR); BACTERIA FEW /hpf (NONE SEEN); BILIRUBIN NEGATIVE (NEGATIVE); COLOR DK YELLOW (YELLOW); EPITHELIAL CELLS OCC /hpf (0-5); GLUCOSE NEGATIVE (NEGATIVE); KETONE NEGATIVE (NEGATIVE); NITRITE NEGATIVE (NEGATIVE); PROTEIN 3+ mg/dL (NEGATIVE); RED CELLS - URINE OCC /hpf (0-5); WHITE CELLS - URINE OCC /hpf (0-5)
[2018-06-18 13:48] LABS: AMORPHOUS SEDIMENT <1+ /lpf (NONE SEEN)
[2018-06-18 13:55] LABS: CHOL - HDL RATIO 2.6 ratio (2.3-4.9); LDL-HDL RATIO 1.3 ratio (1.5-3.5)
[2018-06-18 15:34] VITALS: BP 112/52; BMI 27.0
[2018-06-18 17:22] LABS: CREATINE KINASE 107 UL (21-232)
[2018-06-18 17:26] LABS: TROPONIN-I 0.284 ng/mL (0.000-0.060)
[2018-06-18 23:15] VITALS: BP 73/51
[2018-06-18 23:21] LABS: BASOPHILS 0.1 % (0-2); EOSINOPHILS 0 % (0-7); HEMATOCRIT 42.2 % (42.0-54.0); HEMOGLOBIN 14.1 g/dL (13.5-17.5); IMMATURE GRANULOCYTES 0.1 % (0-5); LYMPHOCYTES 10.1 % (15-50); MCH 32.3 pg (26.0-34.0); MCHC 33.4 g/dL (31.0-37.0); MCV 96.8 fL (80.0-100.0); MEAN PLATELET VOLUME 11.6 fL (7.4-10.4); MONOCYTES 9.7 % (2-11); PLATELET COUNT 152 10x3/uL (130-400); RBC 4.36 10x6/uL (4.20-6.10); RDW 13.1 % (11.5-14.5); WBC 8.1 10x3/uL (4.8-10.8)
[2018-06-18 23:24] LABS: CKMB 10.3 U/L (0.0-3.6); CREATINE KINASE 152 UL (21-232)
[2018-06-18 23:25] LABS: TROPONIN-I 0.406 ng/mL (0.000-0.060)
[2018-06-18 23:27] LABS: APTT 26.9 SECONDS (22.8-39.4); INR 1.08 (0.85-1.17); PROTIME 13.6 SECONDS (11.6-15.0)
[2018-06-18 23:30] VITALS: BP 72/51
[2018-06-18 23:37] LABS: ALBUMIN 3.1 g/dL (3.4-5.0); ANION GAP 10.9 mmol/L (8-16); BILIRUBIN - TOTAL 1.54 mg/dL (0.2-1.3); CALCIUM 8.8 mg/dL (8.5-10.1); CARBON DIOXIDE 31.1 mmol/L (21.0-32.0); CREATININE - SERUM 1.4 mg/dL (0.6-1.3); PROTEIN - SERUM 6.1 g/dL (6.4-8.2)
[2018-06-18 23:45] VITALS: BP 64/45
[2018-06-19] VITALS (91 sets, daily range): BP systolic 57–114; BP diastolic 37–99; BMI 26.9
[2018-06-19 02:40] LABS: APPEARANCE HAZY (CLEAR); BILIRUBIN NEGATIVE (NEGATIVE); COLOR DK YELLOW (YELLOW); GLUCOSE NEGATIVE (NEGATIVE); KETONE NEGATIVE (NEGATIVE); NITRITE NEGATIVE (NEGATIVE); PROTEIN 2+ mg/dL (NEGATIVE); UROBILINOGEN NORMAL (NORMAL)
[2018-06-19 02:44] LABS: AMORPHOUS SEDIMENT >1+ /lpf (NONE SEEN); BACTERIA MODERATE /hpf (NONE SEEN); EPITHELIAL CELLS 0-5 /hpf (0-5); GRANULAR CAST 0-5 /lpf (NONE SEEN); HYALINE CAST 0-5 /lpf (NONE SEEN); MUCUS <1+ /lpf (NONE SEEN); WHITE CELLS - URINE 0-5 /hpf (0-5)
[2018-06-19 03:47] LABS: BASOPHILS 0.1 % (0-2); EOSINOPHILS 0 % (0-7); HEMATOCRIT 43.5 % (42.0-54.0); HEMOGLOBIN 14.4 g/dL (13.5-17.5); IMMATURE GRANULOCYTES 0.3 % (0-5); LYMPHOCYTES 6.1 % (15-50); MCH 32.1 pg (26.0-34.0); MCHC 33.1 g/dL (31.0-37.0); MCV 97.1 fL (80.0-100.0); MONOCYTES 12.5 % (2-11); PLATELET COUNT 145 10x3/uL (130-400); RBC 4.48 10x6/uL (4.20-6.10); RDW 12.9 % (11.5-14.5)
[2018-06-19 03:56] LABS: WBC 12.5 10x3/uL (4.8-10.8)
[2018-06-19 04:27] LABS: ALBUMIN 3.1 g/dL (3.4-5.0); ALKALINE PHOSPHATASE 56 U/L (46-116); BILIRUBIN - TOTAL 1.15 mg/dL (0.2-1.3); CALCIUM 8.9 mg/dL (8.5-10.1); CARBON DIOXIDE 33.6 mmol/L (21.0-32.0); CHLORIDE - SERUM 97 mmol/L (98-107); CKMB 10.9 U/L (0.0-3.6); CREATINE KINASE 167 UL (21-232); CREATININE - SERUM 1.2 mg/dL (0.6-1.3); MAGNESIUM - SERUM 1.8 mg/dL (1.8-2.4); PHOSPHOROUS 6.1 mg/dL (2.5-4.9); POTASSIUM - SERUM 5.3 mmol/L (3.5-5.1); PROTEIN - SERUM 6.6 g/dL (6.4-8.2); SODIUM 132 mmol/L (136-145); UREA NITROGEN 31 mg/dL (7-18); eGFR NON AFRICAN AMERICAN 63 mL/min (90-120)
[2018-06-19 04:28] LABS: ALT (SGPT) 54 U/L (10-68); CALC OSMOLALITY 272 mosm/kg (275-300); GLUCOSE 125 mg/dL (74-106); TROPONIN-I 0.258 ng/mL (0.000-0.060)
[2018-06-20] VITALS (94 sets, daily range): BP systolic 68–112; BP diastolic 46–98; Ht 188 cm; Wt 77.7 kg
[2018-06-20 02:44] LABS: BASOPHILS 0 % (0-2); EOSINOPHILS 0 % (0-7); HEMOGLOBIN 14.9 g/dL (13.5-17.5); IMMATURE GRANULOCYTES 0.2 % (0-5); MCH 32.3 pg (26.0-34.0); MCHC 33.9 g/dL (31.0-37.0); MCV 95.2 fL (80.0-100.0); MEAN PLATELET VOLUME 11.3 fL (7.4-10.4); MONOCYTES 5.5 % (2-11); NEUTROPHILS 91.3 % (40-80); PLATELET COUNT 149 10x3/uL (130-400); RBC 4.62 10x6/uL (4.20-6.10); RDW 12.5 % (11.5-14.5); WBC 10.6 10x3/uL (4.8-10.8)
[2018-06-20 03:12] LABS: ALBUMIN 2.9 g/dL (3.4-5.0); ALKALINE PHOSPHATASE 57 U/L (46-116); ALT (SGPT) 47 U/L (10-68); BILIRUBIN - TOTAL 0.76 mg/dL (0.2-1.3); CALC OSMOLALITY 274 mosm/kg (275-300); CALCIUM 8.8 mg/dL (8.5-10.1); CARBON DIOXIDE 35.3 mmol/L (21.0-32.0); CHLORIDE - SERUM 94 mmol/L (98-107); GLUCOSE 187 mg/dL (74-106); MAGNESIUM - SERUM 1.6 mg/dL (1.8-2.4); PHOSPHOROUS 3.5 mg/dL (2.5-4.9); PRO BNP 27650 pg/mL (0-125); PROTEIN - SERUM 6.6 g/dL (6.4-8.2); SODIUM 132 mmol/L (136-145); THYROID STIMULATING HORMONE 0.31 uIU/mL (0.36-3.74); UREA NITROGEN 26 mg/dL (7-18); eGFR NON AFRICAN AMERICAN 78 mL/min (90-120)
[2018-06-21] VITALS (90 sets, daily range): BP systolic 71–113; BP diastolic 45–106
[2018-06-21 05:09] LABS: BASOPHILS 0 % (0-2); EOSINOPHILS 0 % (0-7); HEMATOCRIT 44.6 % (42.0-54.0); IMMATURE GRANULOCYTES 0.2 % (0-5); LYMPHOCYTES 1.9 % (15-50); MCH 32.3 pg (26.0-34.0); MCHC 33.6 g/dL (31.0-37.0); MCV 96.1 fL (80.0-100.0); MEAN PLATELET VOLUME 11.3 fL (7.4-10.4); MONOCYTES 4.5 % (2-11); NEUTROPHILS 93.4 % (40-80); PLATELET COUNT 155 10x3/uL (130-400); RBC 4.64 10x6/uL (4.20-6.10); RDW 12.8 % (11.5-14.5); WBC 10.4 10x3/uL (4.8-10.8)
[2018-06-21 05:22] LABS: ALBUMIN 2.9 g/dL (3.4-5.0); ANION GAP 5.5 mmol/L (8-16); BILIRUBIN - TOTAL 0.88 mg/dL (0.2-1.3); CALCIUM 9.1 mg/dL (8.5-10.1); CARBON DIOXIDE 39.1 mmol/L (21.0-32.0); CREATININE - SERUM 1.3 mg/dL (0.6-1.3); MAGNESIUM - SERUM 1.7 mg/dL (1.8-2.4); PHOSPHOROUS 3.9 mg/dL (2.5-4.9); POTASSIUM - SERUM 3.6 mmol/L (3.5-5.1); PROTEIN - SERUM 6.3 g/dL (6.4-8.2)
[2018-06-22] VITALS (102 sets, daily range): BP systolic 65–112; BP diastolic 44–82
[2018-06-22 04:57] LABS: BASOPHILS 0 % (0-2); EOSINOPHILS 0 % (0-7); HEMATOCRIT 45.7 % (42.0-54.0); HEMOGLOBIN 15.5 g/dL (13.5-17.5); IMMATURE GRANULOCYTES 0.2 % (0-5); LYMPHOCYTES 1.7 % (15-50); MCHC 33.9 g/dL (31.0-37.0); MCV 97.2 fL (80.0-100.0); MEAN PLATELET VOLUME 11.1 fL (7.4-10.4); MONOCYTES 3.8 % (2-11); NEUTROPHILS 94.3 % (40-80); PLATELET COUNT 153 10x3/uL (130-400); RDW 12.9 % (11.5-14.5); WBC 10.6 10x3/uL (4.8-10.8)
[2018-06-22 05:36] LABS: ALBUMIN 2.8 g/dL (3.4-5.0); ANION GAP 6.7 mmol/L (8-16); BILIRUBIN - TOTAL 0.67 mg/dL (0.2-1.3); CALCIUM 8.9 mg/dL (8.5-10.1); CARBON DIOXIDE 39.4 mmol/L (21.0-32.0); CREATININE - SERUM 1.3 mg/dL (0.6-1.3); MAGNESIUM - SERUM 1.7 mg/dL (1.8-2.4); POTASSIUM - SERUM 3.1 mmol/L (3.5-5.1); PROTEIN - SERUM 6.4 g/dL (6.4-8.2)
[2018-06-22 05:38] LABS: PHOSPHOROUS 4.9 mg/dL (2.5-4.9)
[2018-06-23] VITALS (96 sets, daily range): BP systolic 74–114; BP diastolic 54–97
[2018-06-23 04:33] LABS: BASOPHILS 0 % (0-2); EOSINOPHILS 0 % (0-7); HEMATOCRIT 49.3 % (42.0-54.0); HEMOGLOBIN 16.7 g/dL (13.5-17.5); IMMATURE GRANULOCYTES 0.1 % (0-5); LYMPHOCYTES 2.2 % (15-50); MCH 32.6 pg (26.0-34.0); MCHC 33.9 g/dL (31.0-37.0); MCV 96.1 fL (80.0-100.0); MEAN PLATELET VOLUME 11.5 fL (7.4-10.4); MONOCYTES 3.7 % (2-11); PLATELET COUNT 170 10x3/uL (130-400); RBC 5.13 10x6/uL (4.20-6.10)
[2018-06-23 05:02] LABS: ALBUMIN 2.9 g/dL (3.4-5.0); ANION GAP 4.9 mmol/L (8-16); BILIRUBIN - TOTAL 0.63 mg/dL (0.2-1.3); CALCIUM 8.9 mg/dL (8.5-10.1); CARBON DIOXIDE 38.7 mmol/L (21.0-32.0); CREATININE - SERUM 1.1 mg/dL (0.6-1.3); POTASSIUM - SERUM 3.6 mmol/L (3.5-5.1); PROTEIN - SERUM 6.4 g/dL (6.4-8.2)
[2018-06-23 05:07] LABS: PHOSPHOROUS 2.6 mg/dL (2.5-4.9)
[2018-06-24] VITALS (96 sets, daily range): BP systolic 66–120; BP diastolic 45–91
[2018-06-24 04:32] LABS: BASOPHILS 0 % (0-2); EOSINOPHILS 0.2 % (0-7); HEMATOCRIT 48.9 % (42.0-54.0); HEMOGLOBIN 16.6 g/dL (13.5-17.5); IMMATURE GRANULOCYTES 0.1 % (0-5); LYMPHOCYTES 6.3 % (15-50); MCH 32.3 pg (26.0-34.0); MCHC 33.9 g/dL (31.0-37.0); MCV 95.1 fL (80.0-100.0); MEAN PLATELET VOLUME 11.2 fL (7.4-10.4); MONOCYTES 9.5 % (2-11); NEUTROPHILS 83.9 % (40-80); PLATELET COUNT 150 10x3/uL (130-400); RBC 5.14 10x6/uL (4.20-6.10); RDW 13.2 % (11.5-14.5); WBC 9.5 10x3/uL (4.8-10.8)
[2018-06-24 04:51] LABS: CALC OSMOLALITY 290 mosm/kg (275-300); CALCIUM 9.1 mg/dL (8.5-10.1); CARBON DIOXIDE 37.2 mmol/L (21.0-32.0); CHLORIDE - SERUM 97 mmol/L (98-107); CREATININE - SERUM 0.9 mg/dL (0.6-1.3); GLUCOSE 148 mg/dL (74-106); POTASSIUM - SERUM 3.4 mmol/L (3.5-5.1); SODIUM 138 mmol/L (136-145); UREA NITROGEN 45 mg/dL (7-18); eGFR NON AFRICAN AMERICAN 88 mL/min (90-120)
[2018-06-24 05:04] LABS: PHOSPHOROUS 3.7 mg/dL (2.5-4.9)
[2018-06-25] VITALS (93 sets, daily range): BP systolic 73–123; BP diastolic 49–98
[2018-06-25 09:18] LABS: BASOPHILS 0 % (0-2); EOSINOPHILS 0.7 % (0-7); HEMATOCRIT 52.8 % (42.0-54.0); HEMOGLOBIN 18.1 g/dL (13.5-17.5); IMMATURE GRANULOCYTES 0.1 % (0-5); MCH 32.8 pg (26.0-34.0); MCHC 34.3 g/dL (31.0-37.0); MCV 95.8 fL (80.0-100.0); MEAN PLATELET VOLUME 11.2 fL (7.4-10.4); MONOCYTES 8.8 % (2-11); NEUTROPHILS 83.4 % (40-80); PLATELET COUNT 114 10x3/uL (130-400); RBC 5.51 10x6/uL (4.20-6.10); RDW 13.4 % (11.5-14.5); WBC 9.7 10x3/uL (4.8-10.8)
[2018-06-25 09:31] LABS: CALC OSMOLALITY 287 mosm/kg (275-300); CALCIUM 9.4 mg/dL (8.5-10.1); CARBON DIOXIDE 35.4 mmol/L (21.0-32.0); CHLORIDE - SERUM 95 mmol/L (98-107); CREATININE - SERUM 0.9 mg/dL (0.6-1.3); GLUCOSE 119 mg/dL (74-106); SODIUM 137 mmol/L (136-145); UREA NITROGEN 49 mg/dL (7-18); eGFR NON AFRICAN AMERICAN 88 mL/min (90-120)
[2018-06-25 09:32] LABS: POTASSIUM - SERUM 4.2 mmol/L (3.5-5.1)
[2018-06-26] VITALS (63 sets, daily range): BP systolic 61–104; BP diastolic 45–91
[2018-06-27] VITALS (20 sets, daily range): BP systolic 76–93; BP diastolic 50–71
[2018-06-27 04:30] LABS: ANION GAP 7.1 mmol/L (8-16); CALCIUM 8.6 mg/dL (8.5-10.1); CARBON DIOXIDE 35.9 mmol/L (21.0-32.0); CREATININE - SERUM 1.1 mg/dL (0.6-1.3); MAGNESIUM - SERUM 1.9 mg/dL (1.8-2.4); PHOSPHOROUS 3.3 mg/dL (2.5-4.9)
[2018-06-28 00:30] VITALS: BP 90/52
[2018-06-28 04:30] VITALS: BP 84/50
[2018-06-28 06:47] LABS: BASOPHILS 0.1 % (0-2); HEMOGLOBIN 14.1 g/dL (13.5-17.5); IMMATURE GRANULOCYTES 0.3 % (0-5); LYMPHOCYTES 6.8 % (15-50); MCH 31.8 pg (26.0-34.0); MCHC 33.6 g/dL (31.0-37.0); MCV 94.6 fL (80.0-100.0); MEAN PLATELET VOLUME 11.3 fL (7.4-10.4); MONOCYTES 10.1 % (2-11); NEUTROPHILS 81.7 % (40-80); PLATELET COUNT 115 10x3/uL (130-400); RBC 4.44 10x6/uL (4.20-6.10); RDW 13.3 % (11.5-14.5); WBC 10.5 10x3/uL (4.8-10.8)
[2018-06-28 07:09] LABS: ANION GAP 5.6 mmol/L (8-16); CALCIUM 8.5 mg/dL (8.5-10.1); CARBON DIOXIDE 34.4 mmol/L (21.0-32.0); CREATININE - SERUM 1.1 mg/dL (0.6-1.3); MAGNESIUM - SERUM 1.8 mg/dL (1.8-2.4); PHOSPHOROUS 2.5 mg/dL (2.5-4.9)
[2018-06-28 10:12] VITALS: BP 85/43
[2018-06-28 11:00] VITALS: BP 95/49
[2018-06-28 15:00] VITALS: BP 102/57
[2018-06-28 20:00] VITALS: BP 97/44
[2018-06-29 05:51] LABS: BASOPHILS 0 % (0-2); EOSINOPHILS 1.3 % (0-7); HEMATOCRIT 40.6 % (42.0-54.0); HEMOGLOBIN 13.3 g/dL (13.5-17.5); IMMATURE GRANULOCYTES 0.4 % (0-5); LYMPHOCYTES 8.4 % (15-50); MCH 31.5 pg (26.0-34.0); MCHC 32.8 g/dL (31.0-37.0); MCV 96.2 fL (80.0-100.0); MEAN PLATELET VOLUME 11.5 fL (7.4-10.4); MONOCYTES 10.4 % (2-11); NEUTROPHILS 79.5 % (40-80); PLATELET COUNT 120 10x3/uL (130-400); RBC 4.22 10x6/uL (4.20-6.10); RDW 13.8 % (11.5-14.5); WBC 10.2 10x3/uL (4.8-10.8)
[2018-06-29 06:11] VITALS: BP 78/45
[2018-06-29 06:40] LABS: ALBUMIN 2.6 g/dL (3.4-5.0); ALKALINE PHOSPHATASE 41 U/L (46-116); ALT (SGPT) 168 U/L (10-68); BILIRUBIN - TOTAL 1.15 mg/dL (0.2-1.3); CALC OSMOLALITY 289 mosm/kg (275-300); CALCIUM 8.4 mg/dL (8.5-10.1); CARBON DIOXIDE 31.5 mmol/L (21.0-32.0); CHLORIDE - SERUM 103 mmol/L (98-107); GLUCOSE 96 mg/dL (74-106); MAGNESIUM - SERUM 1.9 mg/dL (1.8-2.4); PROTEIN - SERUM 5.3 g/dL (6.4-8.2); SODIUM 140 mmol/L (136-145); UREA NITROGEN 43 mg/dL (7-18); eGFR NON AFRICAN AMERICAN 78 mL/min (90-120)
[2018-06-29 06:42] LABS: POTASSIUM - SERUM 3.7 mmol/L (3.5-5.1)
[2018-06-29 08:36] VITALS: BP 118/58
[2018-06-29 12:16] VITALS: BP 109/60
[2018-06-29] MEDS ORDERED: LASIX40 MG PO (14:30)
[2018-06-29] MEDS ORDERED: COREG 3.1253.125 MG PO (14:30)
[2018-06-29] MEDS ORDERED: PREDNISONE10 MG PO (14:33)
[2018-06-29] MEDS ORDERED: SYMBICORT 16010.2 GM INH (14:34)
[2018-06-29] MEDS ORDERED: VENTOLIN HFA18 GM INH (14:35)
== END 2018-06-29 18:15 | disposition home health service (06) | DRG 291 ==
LOC: D.ER 11:19 → D.M2 13:14 → D.ICU 13:14 → D.EDHOLD 13:14 → D.M2 14:08 → D.ICU 23:14 → D.M2 06-27 21:08
PROVIDERS: Emergency Medicine; Family Medicine; Internal Medicine Interventional Cardiology; Internal Medicine Nephrology; Internal Medicine Pulmonary Disease
DX: I11.0 Hypertensive heart disease with heart failure (principal); J96.22 Acute and chronic respiratory failure with hypercapnia; J96.21 Acute and chronic respiratory failure with hypoxia; J18.9 Pneumonia, unspecified organism; J44.1 Chronic obstructive pulmonary disease with (acute) exacerbation; N39.0 Urinary tract infection, site not specified; N17.9 Acute kidney failure, unspecified; E87.2 Acidosis; F17.203 Nicotine dependence unspecified, with withdrawal; I48.92 Unspecified atrial flutter; E87.1 Hypo-osmolality and hyponatremia; I50.23 Acute on chronic systolic (congestive) heart failure; I42.9 Cardiomyopathy, unspecified; I35.0 Nonrheumatic aortic (valve) stenosis; E11.65 Type 2 diabetes mellitus with hyperglycemia

== ENCOUNTER → 2018-07-30 18:39 | Outpatient (CLI) | payer MEDICARE ==
[2018-06-20 13:30] VITALS: BMI 26.9
[~2018-07-30 18:39] MED LIST: COREG 3.1253.125 MG PO; LASIX40 MG PO; PREDNISONE10 MG PO; SYMBICORT 16010.2 GM INH; VENTOLIN HFA18 GM INH
[2018-07-30 18:57] LABS: CALC OSMOLALITY 280 mosm/kg (275-300); CALCIUM 8.9 mg/dL (8.5-10.1); CARBON DIOXIDE 37.2 mmol/L (21.0-32.0); CHLORIDE - SERUM 100 mmol/L (98-107); GLUCOSE 75 mg/dL (74-106); POTASSIUM - SERUM 4.6 mmol/L (3.5-5.1); SODIUM 140 mmol/L (136-145); UREA NITROGEN 21 mg/dL (7-18); eGFR NON AFRICAN AMERICAN 78 mL/min (90-120)
== END | disposition home or self-care (01) ==
LOC: D.LABREF 18:39
PROVIDERS: Internal Medicine Nephrology
DX: I50.9 Heart failure, unspecified (principal)

== ENCOUNTER 2018-08-26 13:47 | Inpatient (IN) | payer MEDICARE ==
[~2018-08-26] VITALS: Ht 188 cm; Wt 88.4 kg
[2018-08-26] VITALS (7 sets, daily range): BP systolic 87–119; BP diastolic 57–88
--- NOTE | ~2018-08-26 | HEMODYNAMI ---
PATIENT:KARISSA CAMPA MEDICAL RECORD: [id number] : 47 LOCATION:[facility] D2127 ADMISSION DATE: 08/26/18 Generatedon:08/30/201814:36 Patient name: KARISSA CAMPA Patient #: [id number] SSN: : 1945 Date of study: 08/30/2018 Page: Of Hemodynamic Procedure Report Patient Data Patient Demographics Procedure consent was obtained First Name: KARISSA Gender: Male Last Name: LOKESH : 1945 [facility] Initial: WEN Age: 72 year(s) Patient #: [id number] Race: Unknown Additional ID: [id number] Contact details [address]: [address] [place] [address] State: [place] City: [facility] [place] Zip code: [address] Past Medical History Allergies: No known allergies Admission Admission Data Admission Date: 08/26/2018 Admission Time: 18:08 Room #: D2127 Procedure Procedure Types Cath Procedure Diagnostic Procedure LHC Coronaries only Aortic Root Angiography Sedation Charges Moderate Sedation up to 15 minutes Procedure Description Procedure Date Procedure Date: 08/30/2018 Procedure Start Time: 14:18 Procedure End Time: 14:36 Procedure Staff Name Function Chapin Patricia MD Performing Physician Keturah Rivera RT Monitor Cheikh Vera RN Nurse Robe Murillo RT Scrub Procedure Data Cath Procedure Fluoroscopy Diagnostic fluoroscopy Total fluoroscopy Time: 3.7 time: 3.7 min min Diagnostic fluoroscopy Total fluoroscopy dose: dose: 1016 mGy 1016 mGy Contrast Material Contrast Material Type Amount (ml) Isovue 300 116 Entry Location Entry Primary Successful Side Size Upsize Upsize Entry Closure Succes sful Closure Location (Fr) 1 (Fr) 2 (Fr) Remarks Device Remarks Femoral Right 5 Fr Exoseal artery Estimated blood loss: 5 ml Diagnostic catheters Device Type Used For End Catheter Placement MULTIPACK JL 4.0 5Fr Left Coronary catheter Angiography DIAGNOSTIC JL 5 5Fr Left Coronary catheter ([id number]) Angiography DIAGNOSTIC JL 6 5Fr Left Coronary catheter ([id number]) Angiography MULTIPACK 3DRC 5Fr Right Coronary catheter Angiography MULTIPACK Pigtail 5 Fr Aortic Root catheter Angiography Procedure Complications No complications Procedure Medications Medication Administration Route Dosage 0.9% NaCl I.V. 100 ml/hr Oxygen NC 8 l/min Heparin Flush Bag added to field 2 bags (1000units/500ml NS) Lidocaine 2% added to field 20 Versed I.V. 1 mg Fentanyl I.V. 50 mcg Hemodynamics Rest Heart Rate: 133 (bpm) Snapshots Pre Cath Intra NCS Post Cath Vital Signs Time Heart Resp SPO2 etCO2 NIBP Rhythm Pain Sedation Rate (ipm) (%) (mmHg) (mmHg) Status Level (bpm) 14:00:06 135 15 92 0 116/83(98) NSR 0 (11) 10(A) , No pain 14:04:07 131 19 95 0 107/79(89) NSR 0 (11) 10(A) , No pain 14:08:07 127 17 96 0 100/78(85) NSR 0 (11) 10(A) , No pain 14:12:07 121 12 95 0 93/70(81) NSR 0 (11) 10(A) , No pain 14:16:04 114 11 94 0 93/72(82) NSR 0 (11) 10(A) , No pain 14:20:02 121 14 94 0 94/73(83) NSR 0 (11) 10(A) , No pain 14:24:00 119 12 94 0 96/73(80) NSR 0 (11) 9(A) , No pain 14:27:57 126 14 95 0 90/69(80) NSR 0 (11) 9(A) , No pain 14:31:53 120 12 94 0 91/70(79) NSR 0 (11) 10(A) , No pain 14:35:48 119 15 93 0 98/72(83) NSR 0 (11) 10(A) , No pain Medications Time Medication Route Dose Verified Delivered Reason Notes Effe ctiveness by by 14:01:17 0.9% NaCl I.V. 100 Cheikh Cheikh Per ml/hr Jody Vera physician RN RN 14:01:34 Oxygen NC 8 Cheikh Cheikh Per l/min Jody Vera physician RN RN 14:01:48 Heparin Flush added 2 Cheikh Cheikh used for Bag to bags Lorigan Lorigan procedure (1000units/500ml field RN RN NS) 14:01:57 Lidocaine 2% added 20ml Cheikh Cheikh for local to vial Lorigan Lorigan anesthetic field RN RN 14:06:53 Versed I.V. 1 mg Cheikh Cheikh for Lorigan Lorigan sedation RN RN 14:07:03 Fentanyl I.V. 50 Cheikh Cheikh for mcg Lorigan Lorigan sedation RN pyrotechnist Log Time Note 13:30:43 Time tracking: Regular hours (M-F 7:00 - 5:00) 13:30:47 Plan of Care:Hemodynamics will remain stable., Cardiac rhythm will remain stable., Comfort level will be maintained., Respiratory function will remain adequate., Patient/ family verbilizes understanding of procedure., Procedure tolerated without complication., Recovers from procedure without complications.. 13:39:12 Robe Murillo RT(R) sent for patient. Start room use. 13:52:19 Patient received from PCU to CCL 2 Alert and oriented. Tansferred to table in Supine position. 13:52:21 Warm blankets applied, and dashawn hugger turned on for patient comfort. 13:52:22 Correct patient and procedure confirmed by team. 13:52:23 Signed procedure consent form obtained from patient. 13:52:24 ECG and BP/O2 sat monitors applied to patient. 13:52:25 Full Disclosure recording started 13:59:11 Vital chart was started 13:59:18 Baseline sample Acquired. 13:59:35 Rhythm: sinus tachycardia 14:00:56 H&P Date Dictated: 08/27/2018 Within 30 days and on chart.. 14:01:00 Pre-procedure instructions explained to patient. 14:01:00 Pre-op teaching completed and patient verbalized understanding. 14:01:03 Family in patients room. 14:01:05 Patient NPO since Midnight. 14:01:12 Patient allergic to No known allergies 14:01:14 Is the patient allergic to Iodine/contrast media? No. 14:01:16 Is patient on blood thinner?No 14:01:17 0.9% NaCl 100 ml/hr I.V. was administered by Cheikh Vera RN; Per physician; 14:01:17 Patient diabetic? No. 14:01:20 Previous problem with sedation/anesthesia? No ? 14:01:21 Snore? No 14:01:22 Sleep apnea? No 14:01:23 Deviated septum? No 14:01:24 Opens mouth fully? Yes 14:01:24 Sticks out tongue? Yes 14:01:34 Oxygen 8 l/min NC was administered by Cheikh Vera RN; Per physician; 14:01:44 Airway obstruction? Yes COPD 14:01:48 Heparin Flush Bag (1000units/500ml NS) 2 bags added to field was administered by Cheikh Vera RN; used for procedure; 14:01:57 Lidocaine 2% 20ml vial added to field was administered by Cheikh Vera RN; for local anesthetic; 14:02:12 Dentures? Yes OUT 14:02:17 Pre procedure: right dorsailis pedis pulse 2+ Normal; easily identifiable; not easily obliterated 14:02:30 Patient pain scale 0/10 ?. 14:02:48 IV patent on arrival in left forearm with 0.9% NaCl at O. 14:02:50 Lab results completed and on chart. 14:02:53 Right groin area was prepped with chlora-prep and draped in sterile fashion 14:02:54 Alarms reviewed by R. N. 14:02:54 Sharps counted by scrub and verified by R.N. 14:04:48 Use device set Femoral Dx 14:04:49 ACIST Syringe (94550) opened to sterile field. 14:04:49 Bag Decanter (2001S) opened to sterile field. 14:04:50 Medline Cath Pack ([id number]) opened to sterile field. 14:04:50 DIAGNOSTIC WIRE .035 260cm J wire (520590) opened to sterile field. 14:04:51 ACIST Hand Control (93282) opened to sterile field. 14:04:52 ACIST Manifold (74129) opened to sterile field. 14:04:52 DIAGNOSTIC Multipack 5Fr catheter set ([id number]) opened to sterile field. 14:04:53 Tegaderm 4 x 4 (1626W) opened to sterile field. 14:04:54 SHEATH 5FR [place] (FMG508) opened to sterile field. 14:06:27 Final Timeout: patient, procedure, and site verified with staff and physician. All members of the team are in agreement. 14:06:29 Right groin site verified by team. 14:06:31 Physical assessment completed. ASA score P 2 - A patient with mild systemic disease as per Chapin Patricia MD. 14:06:35 Sedation plan: IV Moderate Sedation Medication:Versed, Fentanyl 14:06:53 Versed 1 mg I.V. was administered by Cheikh Vera RN; for sedation; 14:07:03 Fentanyl 50 mcg I.V. was administered by Cheikh Vera RN; for sedation; 14:11:43 Zero performed for pressure channel P1 14:18:39 Procedure started. 14:18:45 Local anesthetic to right femoral artery with Lidocaine 2% by Chapin Patricia MD.INITIAL ACCESS ONLY 14:19:40 A 5 Fr sheath was inserted into the Right Femoral artery 14:20:03 A MULTIPACK JL 4.0 5Fr catheter was advanced over the wire and used for Left Coronary Angiography. REMOVED UNABLE TO CANNULATE 14:21:54 A DIAGNOSTIC JL 5 5Fr catheter ([id number]) was advanced over the wire and used for Left Coronary Angiography. REMOVED UNABLE TO CANNULATE 14:23:56 A DIAGNOSTIC JL 6 5Fr catheter ([id number]) was advanced over the wire and used for Left Coronary Angiography. 14:26:43 Catheter removed. 14:28:23 A MULTIPACK 3DRC 5Fr catheter was advanced over the wire and used for Right Coronary Angiography. 14:28:50 Catheter removed. 14:29:28 A MULTIPACK Pigtail 5 Fr catheter was advanced over the wire and used for Aortic Root Angiography. 14:30:44 Injector settings: Ml/sec: 15, Volume: 30, 14:30:48 Aortic Root visualized 14:30:59 EXOSEAL 5Fr (EX500) opened to sterile field. 14:31:22 Catheter removed. 14:31:38 Sheath removed intact; hemostasis achieved with Exoseal to the Right Femoral artery. 14:31:40 Procedure ended.(Physican Out) 14:32:24 Fluoroscopy time 03.70 minutes. 14:32:33 Fluoroscopy dose: 1016 mGy 14:32:33 Flurop Dose total: 1016 14:32:37 Contrast amount:Isovue 300 116ml. 14:32:46 Sharps counted by scrub and verified by R.N. 14:32:47 Insertion/operative site no bleeding no hematoma. 14:32:49 Post-op/insertion site Right Femoral artery dressed using a 4 x 4 and Tegaderm. 14:32:52 Post right femoral artery:stable, clean and dry 14:32:53 Post Procedure Pulses reassessed and unchanged 14:32:56 Post-procedure physical assessment completed. ASA score P 2 - A patient with mild systemic disease as per Chapin Patricia MD. 14:32:58 Post procedure rhythm: unchanged. 14:33:03 Estimated blood loss: 5 ml 14:33:04 Post procedure instruction explained to patient.Patient verbalizes understanding. 14:33:05 Patient needs reinforcement of post procedure teaching. 14:33:16 Procedure type changed to Cath procedure, Diagnostic procedure, LHC, Coronaries only, Aortic Root Angiography, Sedation Charges, Moderate Sedation up to 15 minutes 14:33:20 Procedure Complication : No complications 14:33:22 See physician's report for complete and final results. 14:34:07 Procedure and supply charges have been captured, reviewed, submitted and are correct. 14:35:56 Vital chart was stopped 14:35:58 Report given to PCU. 14:36:03 Patient transfered to PCU with Bed. 14:36:05 Procedure ended. 14:36:05 Full Disclosure recording stopped 14:36:12 End room use (Document Last) Device Usage Item Name Manufacture Quantity Catalog Hospital Part Current Minimal L ot# / Number Charge Number Stock Stock Serial# Code ACIST Acist 1 16446 457203 435503 175912 20 Syringe Medical (19036) Systems Inc Bag Microtek 1 396049 90585 602242 5 Decanter Medical Inc. () Medline Medline 1 [id number] 152534 78276 977545 5 Cath Pack ([id number]) DIAGNOSTIC [facility] [place] 1 351283 149666 277816 278007 30 WIRE .035 260cm J wire (317676) ACIST Hand Acist 1 78273 235804 234375 557673 5 Control Medical (61405) Systems Inc ACIST Acist 1 27785 873572 468031 044753 5 Manifold Medical (51248) Systems Inc DIAGNOSTIC Cardinal 1 [id number] 169387 13811 573369 30 Multipack Health 5Fr catheter set (IU7950) Tegaderm 4 3M 1 1626W 700417 359547 296150 5 x 4 (1626W) SHEATH 5FR Terumo 1 LQD550 214979 739720 686172 5 [place] (QTJ437) MULTIPACK Cardinal 1 976686 5 JL 4.0 5Fr Health catheter DIAGNOSTIC Cardinal 1 [id number] 418468 316584 000496 5 JL 5 5Fr Health catheter ([id number]) DIAGNOSTIC Cardinal 1 [id number] 178455 113237 290082 5 JL 6 5Fr Health catheter ([id number]) MULTIPACK Cardinal 1 789283 5 3DRC 5Fr Health catheter MULTIPACK Cardinal 1 238558 5 Pigtail 5 Health Fr catheter EXOSEAL 5Fr Cardinal 1 EX500 662327 710146 511391 10 (EX500) Health Signature Audit [place] Stage Time Signature Unsigned Intra-Procedure 08/30/2018 Keturah 2:36:29 PM Counts RT(R) Signatures Monitor : Keturah Signature : Counts RT Date : Time : [place] [place] [address]
[2018-08-26 14:25] LABS: HEMATOCRIT 42.5 % (42.0-54.0); HEMOGLOBIN 13.9 g/dL (13.5-17.5); MCH 31.6 pg (26.0-34.0); MCHC 32.7 g/dL (31.0-37.0); MCV 96.6 fL (80.0-100.0); MEAN PLATELET VOLUME 10.6 fL (7.4-10.4); NEUTROPHILS 59.5 % (40-80); RDW 14.4 % (11.5-14.5); WBC 5.6 10x3/uL (4.8-10.8)
[2018-08-26 14:26] LABS: PLATELET COUNT 162 10x3/uL (130-400)
[2018-08-26 14:29] LABS: ALBUMIN 3.4 g/dL (3.4-5.0); ALKALINE PHOSPHATASE 72 U/L (46-116); ALT (SGPT) 19 U/L (10-68); CALC OSMOLALITY 280 mosm/kg (275-300); CALCIUM 9.5 mg/dL (8.5-10.1); CARBON DIOXIDE 34.7 mmol/L (21.0-32.0); CHLORIDE - SERUM 100 mmol/L (98-107); CREATININE - SERUM 0.9 mg/dL (0.6-1.3); PROTEIN - SERUM 7.9 g/dL (6.4-8.2); SODIUM 139 mmol/L (136-145); UREA NITROGEN 18 mg/dL (7-18); eGFR NON AFRICAN AMERICAN 88 mL/min (90-120)
[2018-08-26 14:30] LABS: GLUCOSE 115 mg/dL (74-106)
[2018-08-26 14:32] LABS: APTT 24.7 SECONDS (22.8-39.4); INR 0.98 (0.85-1.17); PROTIME 12.5 SECONDS (11.6-15.0)
[2018-08-26 14:47] LABS: CKMB 2.9 U/L (0.0-3.6); CREATINE KINASE 48 UL (21-232); PRO BNP 17442 pg/mL (0-125)
--- NOTE | 2018-08-26 14:55 | NUR ---
CRITICAL LAB CALLED [facility] 0.070. EDP NOTIFIED. CRITICAL LAB SHEET COMPLETED AND PLACED ON PT CHART.
--- NOTE | 2018-08-26 15:25 | NUR ---
PT OBSERVED SITTING IN HIGH FOWLERS. RESIPRATIONS EVEN, NON-LABORED WITH BIPAP IN PLACE. CALL LIGHT IN REACH. SIDE RAIL UP X 1. PT DENIES NEEDS AT THIS TIME. WILL CONTINUE TO MONITOR.
--- NOTE | 2018-08-26 19:25 | NUR ---
RT REPEATED ABGS. DC BIPAP. PLACED ON 4 L NC. SANDWICH TRAY PROVIDED
--- NOTE | 2018-08-26 19:28 | NUR ---
PT REPORT TO [facility]. PT SITTING UP AT BS EATING DINNER ON 4LNC. TRIAL OFF OF BIPAP. BREATHING NON-LABORED. PT IN NAD AT THIS TIME.
--- NOTE | 2018-08-26 20:00 | NUR ---
RECEIVED PATIENT FROM ER. PATIENT IS ALERT AND ORIENTED. RESPIRATIONS ARE EVEN AND UNLABORED. NO S/S OF DISTRESS. NO C/O PAIN. PATIENT VERBALIZES NO NEEDS AT THIS TIME. PT BOARD UPDATED. CALL LIGHT WITHIN REACH. WILL CPOC.
[2018-08-27] VITALS: BP 93/60
[2018-08-27 04:00] VITALS: BP 76/52
[2018-08-27 04:09] VITALS: BP 95/62; BMI 23.5
--- NOTE | 2018-08-27 05:00 | NUR ---
ROOM MAID REPORTED PATIENT BLOOD PRESSURE 76/52. ASSESSED PATIENT PATIENT IS ASYMPTOMATIC. PATIENT REPORTED THAT HIS BLOOD PRESSURE ALWAYS RUNS LOW. PATIENT IS ALERT AND ORIENTED. RESPIRATIONS IS EVEN AND UNLABORED. NO S/S OF DISTRESS. WILL CPOC.
[2018-08-27 06:32] LABS: BASOPHILS 0 % (0-2); EOSINOPHILS 0 % (0-7); HEMATOCRIT 39.5 % (42.0-54.0); HEMOGLOBIN 12.8 g/dL (13.5-17.5); LYMPHOCYTES 7.5 % (15-50); MCH 31.1 pg (26.0-34.0); MCHC 32.4 g/dL (31.0-37.0); MCV 96.1 fL (80.0-100.0); MEAN PLATELET VOLUME 11.2 fL (7.4-10.4); MONOCYTES 1.6 % (2-11); NEUTROPHILS 90.9 % (40-80); PLATELET COUNT 183 10x3/uL (130-400); RBC 4.11 10x6/uL (4.20-6.10); RDW 14.9 % (11.5-14.5); WBC 4.4 10x3/uL (4.8-10.8)
[2018-08-27 06:49] LABS: ALBUMIN 3.1 g/dL (3.4-5.0); ANION GAP 10.8 mmol/L (8-16); BILIRUBIN - TOTAL 1.04 mg/dL (0.2-1.3); CALCIUM 9.4 mg/dL (8.5-10.1); POTASSIUM - SERUM 3.8 mmol/L (3.5-5.1); PROTEIN - SERUM 7.5 g/dL (6.4-8.2)
[2018-08-27 06:50] LABS: CREATININE - SERUM 1.2 mg/dL (0.6-1.3)
[2018-08-27 07:52] VITALS: BP 79/52
--- NOTE | 2018-08-27 10:17 | NUR ---
RESTS IN BED WOTH EYES CLOSED. RESP UL ON . CALL LIGHT IN REACH. WILL CONT. PLAN OF CARE.
[2018-08-27 11:05] VITALS: BMI 23.5
[2018-08-27 14:01] VITALS: BP 80/53
--- NOTE | 2018-08-27 16:54 | NUR ---
SCD;S ON ARSENIO LE
--- NOTE | 2018-08-27 19:33 | NUR ---
PT SITTING UP IN BED WITH EYES OPEN, RR EVEN AND UNLABORED. BED IN LOW POSITION. DENIES NEEDS. CALL LIGHT IN REACH. WILL CONTINUE TO MONITOR.
[2018-08-27 20:00] VITALS: BP 92/64
[2018-08-28] VITALS: BP 94/59
--- NOTE | 2018-08-28 00:20 | NUR ---
PT SITTING ON SIDE OF BED. NO DISTRESS NOTED. CALL LIGHT WITHIN REACH.
--- NOTE | 2018-08-28 02:50 | NUR ---
PT SITTING UP IN BED WITH EYES OPEN, RR EVEN AND UNLABORED. BED IN LOW POSITION. NO S/S OF DISTRESS. DOBUTAMINE AND BUMEX INFUSING ORDERED THROUGH RIGHT WRIST PIV. CALL LIGHT IN REACH. WILL CTM.
[2018-08-28 04:00] VITALS: BP 92/56
[2018-08-28 05:28] LABS: BASOPHILS 0 % (0-2); EOSINOPHILS 0 % (0-7); HEMATOCRIT 37.8 % (42.0-54.0); HEMOGLOBIN 12.5 g/dL (13.5-17.5); IMMATURE GRANULOCYTES 0.1 % (0-5); LYMPHOCYTES 2.5 % (15-50); MCH 31.5 pg (26.0-34.0); MCHC 33.1 g/dL (31.0-37.0); MCV 95.2 fL (80.0-100.0); MEAN PLATELET VOLUME 11.1 fL (7.4-10.4); MONOCYTES 2.3 % (2-11); NEUTROPHILS 95.1 % (40-80); PLATELET COUNT 183 10x3/uL (130-400); RBC 3.97 10x6/uL (4.20-6.10)
--- NOTE | 2018-08-28 05:56 | NUR ---
PT SITTING UP IN BED WITH EYES OPEN, NO DISTRESS NOTED. REFUSES MORNING PROTONIX AFTER EDUCATION PROVIDED. STATES "THERES NOTHING WRONG WITH MY STOMACH". NO FURTHER NEEDS AT THIS TIME. WILL CTM.
[2018-08-28 06:01] LABS: ALBUMIN 3.3 g/dL (3.4-5.0); ANION GAP 12.3 mmol/L (8-16); BILIRUBIN - TOTAL 0.87 mg/dL (0.2-1.3); CALCIUM 8.9 mg/dL (8.5-10.1); CARBON DIOXIDE 32.9 mmol/L (21.0-32.0); CREATININE - SERUM 1.4 mg/dL (0.6-1.3); MAGNESIUM - SERUM 1.3 mg/dL (1.8-2.4); PROTEIN - SERUM 7.4 g/dL (6.4-8.2)
[2018-08-28 06:05] LABS: WBC 10.7 10x3/uL (4.8-10.8)
[2018-08-28 06:16] LABS: POTASSIUM - SERUM 3.2 mmol/L (3.5-5.1)
--- NOTE | 2018-08-28 07:31 | NUR ---
PATIENT IS AWAKE AND ALERT AT THIS TIME. REPORTS HAVING SLEPT OK. DENIES ANY NEEDS AT THIS TIME.
[2018-08-28 08:33] VITALS: BP 87/50
--- NOTE | 2018-08-28 11:28 | NUR ---
IV INFILTRATED. REMOVED IV WITH CATHETER INTACT. PATIENT TOLERATED. WILL ATTEMPT TO RESTART.
[2018-08-28 11:57] VITALS: BP 87/50
--- NOTE | 2018-08-28 12:33 | NUR ---
RN NOTE: SITTING ON SIDE OF BED STATING HE CAN'T GET ENOUGH AIR. ON HIGH FLOW AT 7 L PER NC WITH HUMMIDIFIED WATER. O2 SAT IS 98 % WHEN I JUST CHECKED IT. BILATERAL FEET ARE 4+ EDEMA AND RED AND UP LEGS. ENCOURGED TO GET FEET UP TO HELP WITH SWELLING. EMTIED 600 CC OF CLEAR URINE. ON HEART MONITOR SHOWING ST, HR 120. CALL LIGHT IS IN REACH AND USE. PATIENT STATES HIS NOSE IS STUFFY, I ASKED THAT HE ASKED ALEKSEY CHEEMA APN WHO IS ON THE FLOOR AT THIS TIME FOR A NASAL SPRAY.
--- NOTE | 2018-08-28 14:48 | NUR ---
NEW IV PLACED IN RIGHT WRIST. 22G TWO STICKS, PATIENT TOLERATED. DOBUTAMINE DRIP IS GOING AT 12.5ML/HR.
[2018-08-28 16:23] VITALS: BP 86/59
--- NOTE | 2018-08-28 17:13 | NUR ---
PATIENT REPORTS FEELING VERY SOB. PAGED RESPIRATORY. JT SAYS THAT SHE WILL BE RIGHT UP.
--- NOTE | 2018-08-28 20:03 | NUR ---
INITIAL REPORT AND ROUNDS COMPLETED. SEE ASSESSMENT.
[2018-08-28 21:28] VITALS: BP 86/53
--- NOTE | 2018-08-29 01:04 | NUR ---
SITTING UP ON SIDE OF BED WITH RESPS NONLABORED. O2 @ 7L/HIGH FLOW CANNULA. MONITOR AND CPOC.
[2018-08-29 01:19] VITALS: BP 82/55
--- NOTE | 2018-08-29 02:15 | NUR ---
IV SOLUMEDROL ADMINISTERED. PT UNABLE TO SLEEP. SITTING ON SIDE OF BED. DRINKING COFFEE. MONITOR AND CPOC.
--- NOTE | 2018-08-29 04:41 | NUR ---
PT REFUSED AM LABS.
[2018-08-29 04:57] VITALS: BP 85/55
--- NOTE | 2018-08-29 07:25 | NUR ---
RECEIVED REPORT. SITTING UP ON SIDE OF BED ALERT AND ORIENTED X4. DENIES ANY NEEDS OR PAIN. RR EVEN AND UNLABORED. SOB WITH EXERTION. CALL LIGHT WITHIN REACH, FALL PRECAUTIONS IN PLACE.
[2018-08-29 08:32] VITALS: BP 97/56
[2018-08-29 10:55] LABS: BASOPHILS 0 % (0-2); EOSINOPHILS 0 % (0-7); HEMATOCRIT 36.7 % (42.0-54.0); HEMOGLOBIN 12.2 g/dL (13.5-17.5); IMMATURE GRANULOCYTES 0.2 % (0-5); LYMPHOCYTES 3.7 % (15-50); MCH 31.7 pg (26.0-34.0); MCHC 33.2 g/dL (31.0-37.0); MCV 95.3 fL (80.0-100.0); MEAN PLATELET VOLUME 10.9 fL (7.4-10.4); MONOCYTES 3.4 % (2-11); NEUTROPHILS 92.7 % (40-80); PLATELET COUNT 185 10x3/uL (130-400); RBC 3.85 10x6/uL (4.20-6.10); RDW 14.7 % (11.5-14.5); WBC 11.8 10x3/uL (4.8-10.8)
[2018-08-29 11:11] LABS: ALBUMIN 3.3 g/dL (3.4-5.0); BILIRUBIN - TOTAL 0.98 mg/dL (0.2-1.3); CALCIUM 8.6 mg/dL (8.5-10.1); CARBON DIOXIDE 34.2 mmol/L (21.0-32.0); CREATININE - SERUM 1.5 mg/dL (0.6-1.3); MAGNESIUM - SERUM 1.6 mg/dL (1.8-2.4); POTASSIUM - SERUM 3.2 mmol/L (3.5-5.1); PROTEIN - SERUM 7.3 g/dL (6.4-8.2)
[2018-08-29 12:21] VITALS: BP 83/49
--- NOTE | 2018-08-29 15:31 | NUR ---
SITTING UP ON SIDE OF BED DRINKING COFFEE WATCHING TV. NO SIGNS OF DISTRESS. DENIES ANY NEEDS. AR MARTIN RESUMES PLAN OF CARE AND SAFETY PRECAUTIONS.
[2018-08-29 16:31] VITALS: BP 86/65
--- NOTE | 2018-08-29 16:41 | NUR ---
SITTING UP ON SIDE OF BED WATCHING TV. DENIES ANY NEEDS OR PAIN. RR EVEN AND UNLABORED. C/O NASAL DRYNESS HUMIDITY PLACED ON O2. CALL LIGHT WITHIN REACH, FALL PRECAUTIONS IN PLACE
--- NOTE | 2018-08-29 19:09 | NUR ---
RECIEVED SITTING UP IN BED WITH EYES OPEN AND TV ON. ALERT AND ORIENTED X4. ASKED QUESTIONS CONCERNING AM PROCEDURE. EDUCATED ON QUESTIONS ASKED. IV TO RIGHT WRIST WITH DRIED BLOOD UNDER OPSITE. O2@ 7 LITERS PER HIGH FLOW N/C. BECOMES AOB UPON ANY EXERCTION. EDUCATED ON NPO STATUS. + 4 BILATERAL EDEMA TO BILATERAL LOWER EXTREMITIES. LOWER EXTREMIIES DISCOLORED. TELEMETRY IN PLACE. DENIES ANY NEEDS AT THIS TIME. WILL CONT. POC.
[2018-08-29 21:00] VITALS: BP 92/68
--- NOTE | 2018-08-29 23:28 | NUR ---
IV TO RIGHT WRIST INFILTRATED. REMOVED WITH TIP IN PLACE. RESTARTED 20 GA TO LEFT FA.
[2018-08-30 03:05] VITALS: BP 119/71
[2018-08-30 05:55] VITALS: BP 89/58
[2018-08-30 06:25] LABS: BASOPHILS 0 % (0-2); EOSINOPHILS 0 % (0-7); HEMATOCRIT 37.1 % (42.0-54.0); HEMOGLOBIN 12.1 g/dL (13.5-17.5); IMMATURE GRANULOCYTES 0.1 % (0-5); MCH 31.1 pg (26.0-34.0); MCHC 32.6 g/dL (31.0-37.0); MCV 95.4 fL (80.0-100.0); MEAN PLATELET VOLUME 11.6 fL (7.4-10.4); MONOCYTES 4.4 % (2-11); NEUTROPHILS 93.5 % (40-80); PLATELET COUNT 191 10x3/uL (130-400); RBC 3.89 10x6/uL (4.20-6.10); RDW 14.5 % (11.5-14.5)
[2018-08-30 06:52] LABS: ALBUMIN 3.3 g/dL (3.4-5.0); ANION GAP 9.6 mmol/L (8-16); BILIRUBIN - TOTAL 1.17 mg/dL (0.2-1.3); CALCIUM 8.9 mg/dL (8.5-10.1); CARBON DIOXIDE 34.2 mmol/L (21.0-32.0); CREATININE - SERUM 1.4 mg/dL (0.6-1.3); MAGNESIUM - SERUM 1.8 mg/dL (1.8-2.4); POTASSIUM - SERUM 3.8 mmol/L (3.5-5.1); PROTEIN - SERUM 7.3 g/dL (6.4-8.2); WBC 8.8 10x3/uL (4.8-10.8)
[2018-08-30 08:01] VITALS: BP 99/59
--- NOTE | 2018-08-30 09:44 | NUR ---
UP IN CHAIR WITH CALL LIGHT IN REACH. RESP UL ON . IV PATENT. WILL CONT. PLAN OF CARE.
--- NOTE | 2018-08-30 09:49 | NUR ---
ASSESSMENT DONE. DENIES NEEDS.
[2018-08-30 11:23] VITALS: BP 98/63
--- NOTE | 2018-08-30 14:00 | NUR ---
TO CHEF'S ASSISTANT PER BED
--- NOTE | 2018-08-30 14:50 | NUR ---
RETURN FROM MECHANICAL PROJECT MANAGER PER BED. RT ARNEL MCMULLEN C/D/I. PULSE PALP
[2018-08-30 17:00] VITALS: BP 141/95
--- NOTE | 2018-08-30 17:09 | NUR ---
WITHOUT CHANGES OR DISTRESS NOTED AT THIS TIME. DENIES NEEDS.
[2018-08-31] VITALS: BP 104/77
--- NOTE | 2018-08-31 03:21 | NUR ---
LYING IN BED, RESPIRATIONS EVEN AND UNLABORED. CALL LIGHT IN REACH, WILL CONTINUE WITH PLAN OF CARE.
[2018-08-31 04:00] VITALS: BP 94/64
[2018-08-31 05:43] LABS: BASOPHILS 0 % (0-2); EOSINOPHILS 0 % (0-7); HEMATOCRIT 38.6 % (42.0-54.0); HEMOGLOBIN 12.6 g/dL (13.5-17.5); IMMATURE GRANULOCYTES 0.3 % (0-5); LYMPHOCYTES 3.8 % (15-50); MCH 31.7 pg (26.0-34.0); MCHC 32.6 g/dL (31.0-37.0); MEAN PLATELET VOLUME 11.6 fL (7.4-10.4); MONOCYTES 3.2 % (2-11); NEUTROPHILS 92.7 % (40-80); PLATELET COUNT 186 10x3/uL (130-400); RBC 3.98 10x6/uL (4.20-6.10); RDW 14.6 % (11.5-14.5); WBC 6.9 10x3/uL (4.8-10.8)
[2018-08-31 06:21] LABS: ALBUMIN 3.3 g/dL (3.4-5.0); BILIRUBIN - TOTAL 1.07 mg/dL (0.2-1.3); CALCIUM 9.3 mg/dL (8.5-10.1); CARBON DIOXIDE 35.2 mmol/L (21.0-32.0); CREATININE - SERUM 1.3 mg/dL (0.6-1.3); MAGNESIUM - SERUM 2.2 mg/dL (1.8-2.4); PROTEIN - SERUM 7.2 g/dL (6.4-8.2)
[2018-08-31 06:23] LABS: ANION GAP 10.3 mmol/L (8-16); POTASSIUM - SERUM 4.5 mmol/L (3.5-5.1)
--- NOTE | 2018-08-31 07:25 | NUR ---
ASSESSMENT DONE. DENIES NEEDS.
[2018-08-31 09:10] VITALS: BP 93/63
--- NOTE | 2018-08-31 09:26 | NUR ---
UP SOB WITH CALL LIGHT IN REACH. RESP UL ON . IV PATENT. NO NEEDS VOICED AT THIS TIME.
[2018-08-31 11:53] VITALS: BP 89/61
[2018-08-31 15:52] VITALS: BP 83/59
[2018-08-31 19:00] VITALS: BP 108/66
[2018-09-01] VITALS: BP 86/56
[2018-09-01 04:00] VITALS: BP 92/57
[2018-09-01 06:27] LABS: BASOPHILS 0 % (0-2); EOSINOPHILS 0 % (0-7); HEMATOCRIT 37.1 % (42.0-54.0); HEMOGLOBIN 12.2 g/dL (13.5-17.5); IMMATURE GRANULOCYTES 0.4 % (0-5); LYMPHOCYTES 6.8 % (15-50); MCH 31.6 pg (26.0-34.0); MCHC 32.9 g/dL (31.0-37.0); MCV 96.1 fL (80.0-100.0); MEAN PLATELET VOLUME 11.7 fL (7.4-10.4); MONOCYTES 2.1 % (2-11); NEUTROPHILS 90.7 % (40-80); PLATELET COUNT 173 10x3/uL (130-400); RBC 3.86 10x6/uL (4.20-6.10); RDW 14.4 % (11.5-14.5)
[2018-09-01 07:12] LABS: ALBUMIN 3.4 g/dL (3.4-5.0); ANION GAP 11.1 mmol/L (8-16); BILIRUBIN - TOTAL 0.99 mg/dL (0.2-1.3); CALCIUM 9.2 mg/dL (8.5-10.1); CARBON DIOXIDE 34.5 mmol/L (21.0-32.0); CREATININE - SERUM 1.3 mg/dL (0.6-1.3); MAGNESIUM - SERUM 2.2 mg/dL (1.8-2.4); POTASSIUM - SERUM 4.6 mmol/L (3.5-5.1); PROTEIN - SERUM 7.4 g/dL (6.4-8.2)
[2018-09-01 07:55] VITALS: BP 84/60
--- NOTE | 2018-09-01 08:16 | NUR ---
ASSESSMENT DONE. DENIES NEEDS.
--- NOTE | 2018-09-01 09:54 | NUR ---
RESTS IN BED WITH EYES CLOSED. RESP UL ON . IV PATENT. CALL LIGHT IN REACH.
--- NOTE | 2018-09-01 14:32 | NUR ---
Nutrition follow-up: Diet: Low sodium PO intake ~50-75% of meals Labs reviewed Pt with fluid retention per nursing; 4+ pitting to bilateral lower extremities +BM Wt: 184# RDN following.
[2018-09-01 15:33] VITALS: BP 88/54
--- NOTE | 2018-09-01 17:32 | NUR ---
WITHOUT CHANGES OR DISTRESS NOTED AT THIS TIME. DENIES NEEDS.
--- NOTE | 2018-09-01 19:45 | NUR ---
RESUMING PATIENT CARE. PATIENT IS ALERT AND ORIENTED. RESPIRATIONS ARE EVEN AND UNLABORED. NO S/S OF DISTRESS. NO C/O PAIN. PATIENT DENIES NEEDS AT THIS TIME. CALL LIGHT WITHIN REACH. WILL CPOC.
[2018-09-01 20:00] VITALS: BP 93/62
[2018-09-02] VITALS: BP 90/54
--- NOTE | 2018-09-02 03:22 | NUR ---
PATIENT CONTINUES TO REFUSE HIS SOLU -MEDROL. PATIENT BELIEVES THAT THIS MEDICATION IS MAKING HIM FEEL HORRIBLE. ENCOURAGED PATIENT TO CONTINUE TAKING MEDICATION. EDUCATED PATIENT TO THE IMPORTANCE OF TAKING HIS MEDICATION SCHEDULED. PATIENT CONTINUED TO REFUSE.
[2018-09-02 04:00] VITALS: BP 92/65
--- NOTE | 2018-09-02 07:45 | NUR ---
PT SITTING UP ON SIDE OF BED. NO ACUTE DISTRESS NOTED. O2 @ 7L HI EDENILSON. O2 SAT 98%. IV TO LEFT FOREARM WITH DOBUTAMINE @ 6.4ML/HR, NS @ KVO INFUSING VIA PUMP. SITE WITHOUT REDNESS OR EDEMA. BILAT EDEMA NOTED TO LOWER EXTREMITIES. ASSISTED TO BR AND BACK TO BED AT THIS TIME, PT DOES BECOME SHORT OF BREATH ON EXERTION. CL WITHIN REACH. ENCOURAGED TO CALL WITH NEEDS. CONTINUE POC
[2018-09-02 08:25] VITALS: BP 97/67
[2018-09-02 09:44] LABS: BASOPHILS 0 % (0-2); EOSINOPHILS 0 % (0-7); HEMATOCRIT 33.3 % (42.0-54.0); HEMOGLOBIN 11.1 g/dL (13.5-17.5); IMMATURE GRANULOCYTES 0.8 % (0-5); LYMPHOCYTES 7.8 % (15-50); MCH 31.4 pg (26.0-34.0); MCHC 33.3 g/dL (31.0-37.0); MEAN PLATELET VOLUME 11.5 fL (7.4-10.4); MONOCYTES 3.6 % (2-11); NEUTROPHILS 87.8 % (40-80); PLATELET COUNT 161 10x3/uL (130-400); RBC 3.54 10x6/uL (4.20-6.10)
[2018-09-02 09:48] LABS: MCV 94.1 fL (80.0-100.0)
[2018-09-02 10:12] LABS: ANION GAP 13.1 mmol/L (8-16); CALCIUM 9.3 mg/dL (8.5-10.1); CREATININE - SERUM 1.2 mg/dL (0.6-1.3); POTASSIUM - SERUM 5.1 mmol/L (3.5-5.1)
[2018-09-02 11:33] VITALS: BP 88/67
[2018-09-02 16:23] VITALS: BP 92/65
--- NOTE | 2018-09-02 19:30 | NUR ---
RECEIVED REPORT. SITTING UP ON SIDE OF BED ALERT AND ORIENTED X4. ASSISTED PT IN BED HOB ELEVATED 90 DEGREES, BRIDGED HEELS. LEFT FOREARM IV PATENT NO S/SX OF INFECTION/INFILTRATION NS @ KVO. CONTINUES ON 7L O2 VIA HIGH FLOW NC. CALL LIGHT NIKOLAS REACH, FALL PRECAUTIONS IN PLACE
--- NOTE | 2018-09-03 00:37 | NUR ---
sitting up in bed eyes closed resting. rr even and unlabored. call light within reach, bed alarm on
--- NOTE | 2018-09-03 03:38 | NUR ---
lying in bed hob 90 degrees eyes closed resting. rr even and unlabored. call light within reach, bed alarm on
--- NOTE | 2018-09-03 04:34 | NUR ---
TEST ENGINEERING INTERN AT BEDSIDE TO OBTAIN VITALS, CALL LIGHT IN REACH. WILL CONTINUE WITH PLAN OF CARE.
--- NOTE | 2018-09-03 06:40 | NUR ---
SITTING UP ON SIDE OF BED ALERT AND ORIENTED X4. DENIES ANY NEEDS OR PAIN. CONTINUES ON 9L VIA HIGH FLOW NC. CALL LIGHT WITHIN REACH
--- NOTE | 2018-09-03 08:13 | NUR ---
RESUMING PT CARE, PT IS ALERT LAYING IN BED, REFUSES BREAKFAST AT THIS TIME. RESPIRATIONS EVEN AND UNALBORED. CALL LIGHT IN REACH, WILL CONTINUE TO MONITOR AND FOLLOW PLAN OF CARE.
[2018-09-03 08:55] VITALS: BP 91/63
--- NOTE | 2018-09-03 10:13 | NUR ---
UP SOB WITH CALL LIGHT IN REACH. RESP UL ON . IV PATENT. WILL MONITOR NEEDS.
[2018-09-03 12:42] VITALS: BP 86/60
--- NOTE | 2018-09-03 15:05 | NUR ---
PT C/O BOTTOM DENTURES MISSING, MY CHARGE NURSE AND I HAVE LOOKED THRU EVERYTHING IN HIS ROOM INCLUDING DIRTY LINEN AND TRASH. ALSO SPOKE WITH DIETARY BUT NOTHING WAS FOUND. MY MANAGER EMBALMER FUNERAL DIRECTOR JALEESA WAS NOTIFIED. DENTURES WERE NOT ON HIS ADMISSION LIST. WILL CONTINUE TO SEARCH.
[2018-09-03 17:01] VITALS: BP 96/61
[2018-09-03 19:00] VITALS: BP 99/65
--- NOTE | 2018-09-03 22:30 | NUR ---
PT SITTING UP IN BED, ALERT TO PERSON AND PLACE. NON PRODUCTIVE COUGH NOTED. PT STATES THAT BREATHING TREATMENT DIDNT HELP HIM ANY. INFORMED PT OF MEDICATION I HAD FOR HIM. PT REFUSED TO TAKE MEDICATION DUE TO FEELING NAUSEOUS. GAVE PT 4MG ZOFRAN IV FOR NAUSEA. CHARTED MEDS REFUSED. AUDIBLE WHEEZES HEARD. O2 @ 9L HIGH FLOW. R FOREARM IV NS KVO. ST ON TELE. NO FURTHER CONCERNS AT THIS TIME. BED LOWERD AND LOCKED. CL IN REACH. SR UP X 2. DOOR OPEN AT ALL TIMES. CPOC.
--- NOTE | 2018-09-03 23:20 | NUR ---
PT YELLED OUT INTO RICKS "PORSHA COME HERE" UPON ENTERING PT ROOM PT STATED "I HAVE TO PEE RIGHT NOW!" ASSISTED PT UP TO THE SIDE OF THE BED SO HE COULD USE HIS URINAL. NO FURTHER CONCERNS AT THIS TIME. CPOC
[2018-09-04] VITALS: BP 94/60
--- NOTE | 2018-09-04 03:15 | NUR ---
RN NOTE: PATIENT IS RESTING COMFORTABLY IN BED. RESPIRATIONS ARE EVEN AND UNLABORED. PATIENT WEARING 9L HIGH FLOW NASAL CANNULA. NO S/S OF DISTRESS. CALL LIGHT WITHIN REACH. WILL CPOC.
[2018-09-04 04:00] VITALS: BP 93/62
--- NOTE | 2018-09-04 08:49 | NUR ---
PT REFUSING LAB DRAWS AGAIN THIS AM. PT STATED TO CLINICAL LABORATORY AIDE "COME BACK LATER."
--- NOTE | 2018-09-04 10:08 | NUR ---
ASSISTED BACK IN BED. RESP UL ON . IV PATENT. CALL LIGHT IN REACH.
[2018-09-04 10:41] VITALS: BP 94/58
--- NOTE | 2018-09-04 11:20 | NUR ---
Rehab Note- Acute Inpatient Rehab prescreen order received. The patient has [employer] insurance and will require a PreAuth for an inpatient acute rehab stay. Will need an OT Eval for the PreAuth and will begin the PreAuth process. Will continue to follow at this time. Thank you for this referral! Dana Powell RN Clinial Liaison, [facility]
[2018-09-04 11:25] LABS: BASOPHILS 0.1 % (0-2); EOSINOPHILS 0 % (0-7); HEMATOCRIT 36.5 % (42.0-54.0); IMMATURE GRANULOCYTES 0.6 % (0-5); LYMPHOCYTES 4.6 % (15-50); MCH 31.5 pg (26.0-34.0); MCHC 32.9 g/dL (31.0-37.0); MCV 95.8 fL (80.0-100.0); MEAN PLATELET VOLUME 11.5 fL (7.4-10.4); MONOCYTES 2.8 % (2-11); NEUTROPHILS 91.9 % (40-80); PLATELET COUNT 174 10x3/uL (130-400); RBC 3.81 10x6/uL (4.20-6.10); RDW 14.4 % (11.5-14.5)
[2018-09-04 11:35] LABS: ANION GAP 12.1 mmol/L (8-16); CALCIUM 9.3 mg/dL (8.5-10.1); CARBON DIOXIDE 31.4 mmol/L (21.0-32.0); CREATININE - SERUM 1.8 mg/dL (0.6-1.3); POTASSIUM - SERUM 5.5 mmol/L (3.5-5.1)
[2018-09-04 11:37] LABS: WBC 14.4 10x3/uL (4.8-10.8)
--- NOTE | 2018-09-04 13:52 | NUR ---
PT REFUSED TO TAKE CARAFTE. PT STATES HE "DOES NOT NEED THAT."
--- NOTE | 2018-09-04 14:00 | NUR ---
PT UP WITH PHYSICAL THERAPY WALKING WITH A WALKER.
[2018-09-04 14:29] VITALS: BP 90/60
[2018-09-04 17:11] VITALS: BP 100/58
--- NOTE | 2018-09-04 17:44 | NUR ---
ASKED PT IF HE WAS GOING TO EAT HIS DINNER TRAY. HE STATED HE HAS "NO APPETITE."
[2018-09-04 20:30] VITALS: BP 90/52
--- NOTE | 2018-09-04 21:51 | NUR ---
PT UP ON SIDE OF BED. ALERT AND ORIENTED X 4. VITALS STABLE. TOOK MEDS WITHOUT DIFFICULTY. DRSG TO R GROIN FROM PREVIOUS HEART CATH. R FOREARM IV WITH NS @ 30. 7L O2 VIA HIGH FLOW NC. SINUS TACH ON TELE. 4+ PITTING EDEMA NOTED TO ARSENIO LOWER EXT. NO FURTHER CONCERNS AT THIS TIME. BED LOWERED AND LOCKED. CL IN REACH. SR UP X 2. CPOC.
--- NOTE | 2018-09-04 21:58 | NUR ---
PT AGGRESSIVELY YELLS OUT INTO RICKS, "PORSHA STORY MAEGAN" UPON ENTERING PT ROOM, I TOLD PT THAT HE CANT YELL OUT INTO RICKS AND WAKE THE OTHER PATIENTS UP. PT STATED HE WANTED ME TO TAKE HIS TRAY OUT. TOOK TRAY OUT OF ROOM. NO FURTHER CONCERNS AT THIS TIME. CPOC.
--- NOTE | 2018-09-05 | NUR ---
PT CONTINUES TO YELL OUT. CALLED AND INFORMED HIM THAT PT WAS AGITATED AND WAS NOT ABLE TO GET SLEEP AND PT WAS BEING AGRESSIVE. GAVE ORDERS FOR GEODON 5 MG IM. NO FURTHER ORDERS AT THIS TIME.
[2018-09-05 04:30] VITALS: BP 94/60
--- NOTE | 2018-09-05 06:43 | NUR ---
PT AWAKE AT THIS TIME. YELLING OUT OF ROOM IN AGITATION. UPON ENTERING PT ROOM PT STATED " I NEED AIR" PT DID NOT HAVE OXYGEN ON. APPLIED OXYGEN BACK TO PATIENT AND TOLD HIM HE NEEDED TO KEEP HIS NC ON TO BE ABLE TO BREATHE. PT AGREED AND APOLOGIZED. PT WAS ALSO TANGLED IN HIS IV TUBING AND GOWN. UNTANGLED PT AND MADE COMFORTABLE. NO FURTHER CONCERNS AT THIS TIME. BED LOWERED AND LOCKED. CL IN REACH. SR UP X 2. CPOC.
[2018-09-05 06:53] LABS: CALCIUM 9.9 mg/dL (8.5-10.1)
[2018-09-05 06:55] LABS: ANION GAP 24.2 mmol/L (8-16); CARBON DIOXIDE 23.3 mmol/L (21.0-32.0); CREATININE - SERUM 2.5 mg/dL (0.6-1.3); POTASSIUM - SERUM 6.5 mmol/L (3.5-5.1)
--- NOTE | 2018-09-05 07:25 | NUR ---
DR. HATHAWAY CALLED BY WHITING MACHINE OPERATOR NURSE ABOUT POTASSIUM 6.5. HE GAVE HER ORDERS FOR 61 F KAYEXELATE.
[2018-09-05 07:55] LABS: HEMOGLOBIN 12.1 g/dL (13.5-17.5); MCH 31.5 pg (26.0-34.0); MCHC 33.6 g/dL (31.0-37.0); MCV 93.8 fL (80.0-100.0); MEAN PLATELET VOLUME 11.9 fL (7.4-10.4); PLATELET COUNT 133 10x3/uL (130-400); RBC 3.84 10x6/uL (4.20-6.10); RDW 14.4 % (11.5-14.5); WBC 25.8 10x3/uL (4.8-10.8)
--- NOTE | 2018-09-05 07:58 | NUR ---
PT HAS BEEN AWAKE AND CALLING OUT OFF AND ON ALL NIGHT. CHANTING HIS NURSES NAME, VERY ATTENTION SEEKING WITH HIS VERBAL DISRUPTIONS. ENCOURAGED TO PT TO PLEASE ALLOW OTHER PATIENTS TO HAVE SLEEP TIME, BUT HIS BEHAVIORS CONTINUES. MONITOR AND CPOC.
--- NOTE | 2018-09-05 08:00 | NUR ---
PT MORE CONFUSED THAN YESTERDAY. PT YELLING OUT AND KEEPS PULLING OFF TELEMETRY, DISROBING HIMSELF, AND PULLING OFF OXYGEN.
[2018-09-05 08:16] LABS: LYMPHOCYTES 4 % (15-50); MONOCYTES 1 % (2-11); NEUTROPHILS 91 % (40-80); PLATELET ESTIMATE DECREASED
[2018-09-05 09:18] VITALS: BP 84/36
--- NOTE | 2018-09-05 09:30 | NUR ---
OFFERED TO HELP PT WITH BREAKFAST. PT REFUSED HELP AND TO EAT.
--- NOTE | 2018-09-05 10:09 | NUR ---
UP SOB WITH CALL LIGHT IN REACH. RESP UL ON . WILL CONT. PLAN OF CARE.
--- NOTE | 2018-09-05 11:36 | NUR ---
EKG RESULTS CALLED TO DR. HATHAWAY. HE STATES HE WILL "TAKE A LOOK AT IT."
[2018-09-05 11:46] VITALS: Ht 188 cm; Wt 88.4 kg
--- NOTE | 2018-09-05 12:00 | NUR ---
PT NOT WANTING TO EAT LUNCH.
[2018-09-05 12:42] LABS: ANION GAP 20.4 mmol/L (8-16); CARBON DIOXIDE 27.7 mmol/L (21.0-32.0); CREATININE - SERUM 2.9 mg/dL (0.6-1.3)
[2018-09-05 12:48] LABS: POTASSIUM - SERUM 6.1 mmol/L (3.5-5.1)
--- NOTE | 2018-09-05 12:58 | NUR ---
STATED TO KRISHNA BANQUET CHEF POTASSIUM IS 6.1. SHE VERBALIZED UNDERSTANDING.
--- NOTE | 2018-09-05 13:50 | NUR ---
PT HAS NOT VOIDED TODAY. ASKED PT IF HE FEELS LIKE HE NEEDS TO AND STATES "NO." WILL GET BLADDER SCANNER.
--- NOTE | 2018-09-05 13:55 | NUR ---
PT UP WALKING WITH THERAPY WITH WALKER.
--- NOTE | 2018-09-05 14:16 | NUR ---
STANDING SCALE USED PT WEIGHS 194.6.
[2018-09-05 14:19] VITALS: BP 85/49
--- NOTE | 2018-09-05 14:20 | NUR ---
PT'S KG IS 88.45 DOBUTAMINE DRIP STARTED AND IS INFUSING THROUGH RIGHT FA 20G IV AT 13.3ML/HR.
--- NOTE | 2018-09-05 14:23 | NUR ---
VETERINARY VIRUS SERUM INSPECTOR STATES THERE IS 416ML OF URINE IN PT'S BLADDER. PT WILL HAVE TO BE RICKS CATH'D.
--- NOTE | 2018-09-05 14:27 | NUR ---
CALLED AND SPOKE WITH KRISHNA HAWKINS AND STATED TO HER PT'S IS RETAINING SHE STATES TO PLACE A RICKS CATH.
--- NOTE | 2018-09-05 14:46 | NUR ---
16FR RICKS CATHETER PLACED FOR RETENTION USING STERILE TECHNIQUE. PT TOLERATED PROCEDURE WELL.
--- NOTE | 2018-09-05 15:00 | NUR ---
RIGHT GROIN DRESSING REMOVED. INCISION SITE C/D/I.
[2018-09-05 15:20] LABS: APPEARANCE CLEAR (CLEAR); BILIRUBIN NEGATIVE (NEGATIVE); COLOR DK YELLOW (YELLOW); GLUCOSE NEGATIVE (NEGATIVE); KETONE NEGATIVE (NEGATIVE); NITRITE NEGATIVE (NEGATIVE); PROTEIN NEGATIVE (NEGATIVE); UROBILINOGEN NORMAL (NORMAL)
[2018-09-05 15:26] LABS: PRO/CRE RATIO URINE 0.8 mg/g; PROTEIN - URINE 46.3 mg/dL (0.0-11.9)
--- NOTE | 2018-09-05 16:15 | NUR ---
PT CONFUSED AND PULLING OFF TELEMETRY, DISROBING, AND TRYING TO PULL OUT RICKS CATH. REORIENTED PT AND STATED TO PT YOU ARE ALREADY PEEING SINCE YOU HAVE A RICKS CATHETER. PT PASSIVE WITH ME TRYING TO REORIENT HIM.
--- NOTE | 2018-09-05 17:59 | NUR ---
PT REFUSING TO EAT DINNER TRAY.
--- NOTE | 2018-09-05 18:15 | NUR ---
SPOKE WITH DR. HATHAWAY AND STATED TO HIM PT IS CONFUSED AND KEEPS PULLING EVERYTHING OFF. HE STATED TO ME "PT NEEDS HOSPICE BUT I'LL SEE WHAT I CAN DO."
--- NOTE | 2018-09-05 18:20 | NUR ---
PT STATES "I CAN'T DO MUCH MORE OF THIS" AND CONTINUES TO PULL OF OXYGEN AND TELEMETRY.
--- NOTE | 2018-09-05 18:23 | NUR ---
pt refusing to keep telemtry on. telemtry archana'usman.
--- NOTE | 2018-09-05 18:38 | NUR ---
PT YELLING OUT THIS NURSE AND ANOTHER NURSE ENTERED ROOM TO FIND PT IN DISTRESS. PT BECOME OBTUNDED AND NONRESPONSIVE TO ANY STAFF STIMULI. CODE CELSO CALLED. [facility] TEAM ARRIVED. SEE CODE BLUE SHEET.
--- NOTE | 2018-09-05 18:54 | NUR ---
CODE BLUE WAS CALLED AT 1838. SEE CODE SHEET. CODE WAS CALLED AND PT PRONOUNCED AT 1854.
--- NOTE | 2018-09-05 19:38 | NUR ---
CALLED AND NOTIFIED PERI FONTANEZ PERSON LISTED EMERGENCY CONTACT OF PT'S PASSING AND TIME OF . SHE STATES SHE DOES NOT KNOW WHAT HOME SHE WILL HAVE TO CALL THE REST OF THE FAMILY AND CALL US BACK STATED TO HER TO ASK FOR ANJALI AND GAVE HER THE PHONE NUMBER FOR MED 2. CALLED [facility] AND SPOKE WITH SAM REFERNCE NUMBER [phone] SHE STATES TO CALL HER BACK ONCE PERI ESTEE CALLS US. I VERBALIZED UNDERSTANDING AND PASSED THIS ON TO ANJALI.
--- NOTE | 2018-09-05 23:05 | NUR ---
NO RETURN CALLS OF 2149, SO SECOND CALL PLACED TO LISTED EMERGENCY CONTACT. SHE PROVIDED PT'S SISTERS NUMBER AGAIN TO THIS NURSE. CALL TO TARIK BROOKS, SISTER, . SHE STATES IT IS OKAY TO RELEASE PT TO [facility]. SISTER STATES PT DOES HAVE A DAUGHTER, PIYUSH, BUT IT DOES NOT APPEAR THAT SHE IS GOING TO STEP UP AND MAKE ANY DECISIONS. PT'S SISTER WANTS NURSE TO GET PT'S CREDIT CARDS, TRUCK KEYS, WALLET WITH MONEY IN IT AND KEEP IT AT THE NURSES STATION WITH HER NAME ON IT AND SHE WILL ARRIVE IN THE AM TO GET IT. SHE ALSO SAID PT HAS A DARK [employer] DODGE DAVID TRUCK THAT MAY BE IN THE HOSPITAL. SISTER UPSET THAT PT HAD BEEN IN THE HOSPITAL SINCE THE August AND HE HAD NEVER LET HIS FAMILY KNOW HE WAS SICK. ASKED TARIK IF SHE WAS THE ONE THAT WOULD BE MAKING THE ARRANGEMENTS AND SHE SAID SHE GUESSED SO SINCE THE DAUGHTER HAD NOT CALLED. PHONE CALL CONCLUDED AT THIS TIME. IMMEDIATE CALL FROM PIYUSH TOBIAS (SP?) AND SHE IDENTIFIED PATIENT'S DAUGHTER. ASKED PIYUSH IF SHE WAS IN AGREEMENT WITH HER AUNT ON HER FATHER'S BODY BEING PICKED UP BY [facility] AND SHE IS IN AGREEMENT. ALL BELONGINGS ARE TO BE KEPT AT THE HOSPITAL FOR FAMILY TO WATER INSPECTOR TOMORROW. PHONE CALL CONCLUDED AT THIS TIME.
--- NOTE | 2018-09-05 23:38 | NUR ---
PT ROOM SEARCHED AND WALLET CLIP WAS LOCATED WITH PT'S DRIVERS LICENSE, 3 VISA CARDS, SEVERAL AUTO INSURANCE CARDS, AND HIS MEDICARE CARD. A SET OF KEYS WAS LOCATED. NO GREER WAS FOUND IN ROOM OR IN PT'S POSSESSION. ALL BELONGINGS SEALED UP IN BAG PER FAMILY WITH PLANS FOR THEM TO CONSTRUCTION FRAMER TOMORROW.
--- NOTE | 2018-09-06 00:43 | NUR ---
[facility] ARRIVED AND PT RELEASED TO THEM AT THIS TIME. ALL PERSONAL BELONGINGS KEPT AT HOSPITAL AT FAMILY REQUEST WITH PLANS TO PICK THEM UP IN THE AM.
--- NOTE | 2018-09-06 09:09 | MORECARE ---
CASE MANAGEMENT DISCHARGE SUMMARY PATIENT: KARISSA CAMPA UNIT: [id number] ADM DATE: 08/26/18 AGE: 72 : 47 SEX: M ROOM/BED: D.8456 AUTHOR: SAMSON MASTERS PHYSICIAN: REFERRING PHYSICIAN: MARIE GALARZA MD DATE OF SERVICE: 09/06/18 Discharge Plan Patient Name: KARISSA CAMPA [facility] [facility] 1945 Planned Disposition: Anticipated Discharge Date: 09/05/18 Discharge Date: 09/05/2018 Expected LOS: 10 Initial Reviewer: [email or web address] Initial Review Date: 09/06/2018 Generated: 09/06/18 10:08 am Patient Name: KARISSA CAMPA Page [id number] at 0909 All edits/amendments must be made on the electronic document DICTATION DATE: 09/06/18907 SERVER ENGINEER: DEVORAH 09/06/18907 RPT#: [id number] DC DATE:09/05/18 STATUS: DIS IN [facility] [address] [place] [address] END OF REPORT
--- NOTE | 2018-09-07 06:34 | NUR ---
FAMILY HAD INDICATED THAT PT ALWAYS CARRIED A LARGE AMOUNT OF GREER IN HIS WALLET. NO GREER WAS NOTED TO BE IN HIS WALLET OR POSSESSIONS UPON HIS . THE FOLLOWING SHIFT, THE NURSE THAT HAD ADMITTED MR CAMPA SAID SHE WAS PRESENT WHEN HE HAD HIS CAREGIVER TAKE HIS GREER HOME AND DID NOT KEEP IT AT THE HOSPITAL.
--- NOTE | 2018-09-07 14:21 | NUR ---
PIYUSH DAUGHTER CAME AND PICKED UP HIS BELONGINGS INCLUDING WALLET CLIP WITH DRIVERS LICENSE, 3 VISA CARDS.SEVERAL AUTO INSURANCE CARDS AND MEDICARE CARD. A SET OF KEYS .
== END 2018-09-05 23:02 | DRG 286 ==
LOC: D.ER 13:47 → D.M2 18:08 → D.EDHOLD 18:08 → D.M2 19:23
PROVIDERS: Family Medicine; Internal Medicine Cardiovascular Disease; Internal Medicine Nephrology; ADMIT Emergency Medicine
PROC: B2151ZZ Fluoroscopy of Left Heart using Low Osmolar Contrast (ICD-10-PCS; 2018-08-30)
PROC: 4A023N7 Measurement of Cardiac Sampling and Pressure, Left Heart, Percutaneous Approach (ICD-10-PCS; 2018-08-30)
PROC: B2111ZZ Fluoroscopy of Multiple Coronary Arteries using Low Osmolar Contrast (ICD-10-PCS; principal; 2018-08-30 13:39)
DX: I08.0 Rheumatic disorders of both mitral and aortic valves (principal); I50.23 Acute on chronic systolic (congestive) heart failure; J96.22 Acute and chronic respiratory failure with hypercapnia; J96.21 Acute and chronic respiratory failure with hypoxia; A41.9 Sepsis, unspecified organism; N17.9 Acute kidney failure, unspecified; I42.9 Cardiomyopathy, unspecified; I11.0 Hypertensive heart disease with heart failure; J44.9 Chronic obstructive pulmonary disease, unspecified; I27.20 Pulmonary hypertension, unspecified; D50.9 Iron deficiency anemia, unspecified; Z87.891 Personal history of nicotine dependence; E87.5 Hyperkalemia